=== PATIENT | female | born 2000 | race Caucasian/White ===

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

== ENCOUNTER 2020-04-03 20:09 | Emergency (ER) | payer BC, OTHER ==
[2020-04-03 20:17] VITALS: RESP 18; TEMP 99
[2020-04-03 21:24] LABS: ALT 25 U/L (4-34); AST 23 U/L (14-36); African American GFR (CKD) >90 (>60 ml/min/1.73 sqM); Alkaline Phosphatase 61 U/L (38-126); Anion Gap 8 mmol/L; Blood Urea Nitrogen 8 mg/dL (7-17); Calcium 9.3 mg/dL (8.4-10.2); Carbon Dioxide 24 mmol/L (22-30); Chloride 104 mmol/L (98-107); Glucose 96 mg/dL (74-99); Magnesium 1.9 mg/dL (1.6-2.3); Non-African American GFR(CKD) >90 (>60 ml/min/1.73 sqM); Potassium 3.7 mmol/L (3.5-5.1); Sodium 136 mmol/L (137-145); Total Bilirubin 0.3 mg/dL (0.2-1.3)
[2020-04-03 21:32] LABS: Basophils % (A) 0 %; Eosinophils # (A) 0.1 k/uL (0-0.7); Eosinophils % (A) 1 %; HCT 41.8 % (34.0-46.0); HGB 13.6 gm/dL (11.4-16.0); Lymphocytes # (A) 1.7 k/uL (1.0-4.8); Lymphocytes % (A) 21 %; MCH 29.5 pg (25.0-35.0); MCHC 32.6 g/dL (31.0-37.0); MCV 90.5 fL (80.0-100.0); Mean Platelet Volume 6.9; Monocytes # (A) 0.5 k/uL (0-1.0); Monocytes % (A) 7 %; Neutrophils # (A) 5.5 k/uL (1.3-7.7); Neutrophils % (A) 70 %; Platelet Count 272 k/uL (150-450); RBC 4.62 m/uL (3.80-5.40); RDW 12.4 % (11.5-15.5); WBC 7.9 k/uL (4.0-11.0)
[2020-04-03 21:45] LABS: D-Dimer 0.37 mg/L FEU (<0.60); INR 0.9 (<1.2); Partial Thromboplastin Time 22.7 sec (22.0-30.0); Prothrombin Time 9.5 sec (9.0-12.0)
--- NOTE | 2020-04-03 21:52 | XR ---
EXAMINATION TYPE: XR chest 2V DATE OF EXAM: 04/03/2020 COMPARISON: NONE HISTORY: Chest pain TECHNIQUE: 2 views FINDINGS: Heart and mediastinum are normal. Lungs are clear. Diaphragm is normal. Bony thorax appears normal. IMPRESSION: Normal chest. No change.
[2020-04-03] MEDS ORDERED: ACETAMINOPHEN TAB 325 MG TAB PO STA (21:57)
--- NOTE | 2020-04-03 22:40 | US ---
EXAMINATION TYPE: US venous doppler duplex LE BI DATE OF EXAM: 04/03/2020 10:28 PM COMPARISON: NONE CLINICAL HISTORY: CP with deep inspiration, . chest pain, SOB, patient 12 weeks SIDE PERFORMED: bilateral TECHNIQUE: The lower extremity deep venous system is examined utilizing real time linear array sonog kristie with graded compression, doppler sonography and color-flow sonography. VESSELS IMAGED: External Iliac Vein (EIV) Common Femoral Vein Deep Femoral Vein Greater Saphenous Vein * Femoral Vein Popliteal Vein Small Saphenous Vein * Proximal Calf Veins (* superficial vessels) *Technical limitations due to patient's body habitus Right Leg: no evidence of DVT as visualized Left Leg: no evidence of DVT as visualized IMPRESSION: No sign of deep vein thrombosis in both legs.
[2020-04-03 22:48] VITALS: BP 135/87; PULSE 70
--- NOTE | 2020-04-03 22:56 | ED ---
Chest Pain HPI - General Chief Complaint: Chest Pain Stated Complaint: Chest Pain- 12 wks preg Time Seen by Provider: 04/03/20 20:36 Source: patient, family Mode of arrival: wheelchair Limitations: no limitations - History of Present Illness Initial Comments: 20yo female currently 12 wks presents emergency department today for chief complaint of chest pain. She states it started 2 hours prior to starting work around 4 PM. She states that it is sharp in nature and sometimes increases with deep breath. She denies any leg swelling or calf pain. Patient denies any chest pressure jaw pain and arm pain she denies any significant shortness of breath. Patient states she does have a urinary eye symptoms fevers. She denies any abdominal pain or vaginal discharge patient is no additional complaints. Patient states she has had pain similar to this at other aspects of her body for the past 2-3 months. Patient has no additional concerns she appears well nontoxic on arrival in no acute distress. - Related Data Home Medications Medication Instructions Recorded Confirmed Escitalopram Oxalate [Lexapro] 10 mg PO DAILY 04/16/18 07/21/18 Previous Rx's Medication Instructions Recorded Cyclobenzaprine [Flexeril] 10 mg PO TID #20 tab 07/21/18 methylPREDNISolone [Medrol] 4 mg PO DIRECTED #21 tab.ds.pk 07/21/18 Cyclobenzaprine [Flexeril] 10 mg PO BID PRN 5 Days #10 tab 08/08/18 Ibuprofen 800 mg PO Q8H PRN 7 Days #21 tablet 08/08/18 Allergies Allergy/AdvReac Type Severity Reaction Status Date / Time No Known Allergies Allergy Verified 04/03/20 20:17 Review of Systems ROS Statement: Those systems with pertinent positive or pertinent negative responses have been documented in the HPI. ROS Other: All systems not noted in ROS Statement are negative. EKG Findings - EKG Comments: EKG Findings:: Ventricular rate 81 bpm, PA interval 140 ms QR administration a 2 ms, QT/QTC 378/439. This is normal sinus, NO ST elevation or depression. Past Medical History Past Medical History: No Reported History Additional Past Medical History / Comment(s): anxiety History of Any Multi-Drug Resistant Organisms: None Reported Past Surgical History: No Surgical Hx Reported Additional Past Surgical History / Comment(s): oral surgery Past Psychological History: Anxiety Smoking Status: Current every day smoker, Never smoker Past Alcohol Use History: Occasional Past Drug Use History: None Reported General Exam - General Exam Comments Initial Comments: General: The patient is awake and alert, in no distress, and does not appear acutely ill. Eye: Pupils are equal, round and reactive to light, extra-ocular movements are intact. No nystagmus. There is normal conjunctiva bilaterally. No signs of icterus. Ears, nose, mouth and throat: There are moist mucous membranes and no oral lesions. Neck: The neck is supple, there is no tenderness or JVD. Cardiovascular: There is a regular rate and rhythm. No murmur, rub or gallop is appreciated. Respiratory: Lungs are clear to auscultation, respirations are non-labored, breath sounds are equal. No wheezes, stridor, rales, or rhonchi. Gastrointestinal: Soft, non-distended, non-tender abdomen without masses or organomegaly noted. There is no rebound or guarding present. Musculoskeletal: Normal ROM, no tenderness. Strength 5/5. Sensation intact. Pulses equal bilaterally 2+. Neurological: A&O x 3. CN II-XII intact, There are no obvious motor or sensory deficits. Coordination appears grossly intact. Speech is normal. Skin: Skin is warm and dry and no rashes or lesions are noted. Negative Ewa ns. No calf swelling or pain. No lower extremity edema Psychiatric: Cooperative, appropriate mood & affect, normal judgment. Limitations: no limitations Course Vital Signs 04/03/20 04/03/20 20:12 22:47 Temperature 99 F Pulse Rate 79 70 Respiratory 18 18 Rate Blood Pressure 126/84 135/87 O2 Sat by Pulse 100 100 Oximetry Chest Pain MDM - MDM Ultrasound bilateral lower extremity is negative d-dimer negative troponin negative EKG no acute findings she is not tachycardic nor hypoxic. Patient was educated on CTA being gold standard for PE however thought to have low probability given laboratory studies/vs/ekg/us results. Patient states she would prefer to avoid the CTA/radiation and return if symptoms were worsening. Patient case discussed with Dr. Saucedo who is agreeable to care plan and discharge. Disposition Clinical Impression: Chest discomfort Disposition: HOME SELF-CARE Condition: Good Instructions (If sedation given, give patient instructions): Chest Pain (ED) Additional Instructions: Please use medication as discussed. Please follow-up with family doctor in the next 2 days. Please return to emergency room if the symptoms increase or worsen or for any other concerns. Is patient prescribed a controlled substance at d/c from ED?: No Referrals: None,Stated [Primary Care Provider] - 1-2 days Time of Disposition: 22:56
== END 2020-04-03 23:08 | disposition home or self-care (01) ==
LOC: EC 20:09
DX: O99.891 Other specified diseases and conditions complicating pregnancy (principal); R07.89 Other chest pain; O99.341 Other mental disorders complicating pregnancy, first trimester; F41.9 Anxiety disorder, unspecified; O99.331 Smoking (tobacco) complicating pregnancy, first trimester; F17.200 Nicotine dependence, unspecified, uncomplicated; Z79.899 Other long term (current) drug therapy; Z3A.12 12 weeks gestation of pregnancy
CPT/HCPCS: 36415; 71046; 80053; 83735; 84484; 85025; 85379; 85610; 85730; 93005; 93970; 99285

== ENCOUNTER 2020-06-07 17:07 | Outpatient (CLI) | payer BC ==
[2020-06-07 18:12] VITALS: BP 119/77; PULSE 94; RESP 16; TEMP 97.4
--- NOTE | 2020-06-20 05:15 | P.MSEPDOC ---
Presenting Problems - Arrival Data Date of Arrival on Unit: 06/07/20 Time of Arrival on Unit: 17:07 Mode of Transport: Wheelchair - Complaint OB-Reason for Admission/Chief Complaint: Other Comment: Pt presents to triage with reports of abdominal pain, intermitnent nausea and vomiting. Medical History - Information : 1 Para: 0 Term: 0 : 0 Abortions: Spontaneous or Elective: 0 Number of Living Children: 0 - Gestational Age Gestational Age by BAR (wks/days): 21 Weeks and 2 Days Review of Systems - Review of Systems Constitutional: No problems Breast: No problems ENT: No problems Cardiovascular: No problems Respiratory: No problems Gastrointestinal: Diarrhea, Pain Genitourinary: No problems Musculoskeletal: No problems Neurological: No problems Skin: No problems Vital Signs - Temperature Temperature: 97.4 F - Pulse Pulse Oximetery Pulse Rate: 94 Pulse Assessment Method: Automatic Cuff - Respirations Respiratory Rate: 16 Oxygen Delivery Method: Room Air - Blood Pressure Right Arm Blood Pressure: 119/77 Blood Pressure Mean: 91 Blood Pressure Source: Automatic Cuff Medical Screen Scoring (Pre) - Cervical Exam Dilation: Exam Deferred Effacement: Exam Deferred Membranes: Intact - Uterine Contractions Frequency: N/A Duration: N/A Intensity: N/A - Maternal Vital Signs Maternal Temperature: N/A Maternal Blood Pressure: N/A Signs of Preeclampsia: N/A Maternal Respirations: N/A - Maternal Trauma Maternal Trauma: N/A - Assessment - Baby A Baseline FHR: 150 NST: Reactive - Total Score - Baby A Total Score - Baby A: 0 - Total Score - Baby B Total Score - Baby B: 0 - Total Score - Baby C Total Score - Baby C: 0 - Level of Risk - Baby A Level of Risk - Baby A: Low (0-5) - Level of Risk - Baby B Level of Risk - Baby B: Low (0-5) - Level of Risk - Baby C Level of Risk - Baby C: Low (0-5) Physician Notification (Pre) - Physician Notified Physician Notified Date: 06/07/20 Physician Notified Time: 17:40 New Order Received: Yes (milk of mag, diet, discharge) Disposition - Disposition OB Disposition: Discharge to home Discharge Date: 06/07/20 Discharge Time: 17:40 I agree with the RN Medical Screening Exam: Yes Risk & Benefit of care provided described in d/c instruction: Yes Diagnosis: VOMITING OF , UNSPECIFIED
== END 2020-06-07 17:50 | disposition home or self-care (01) ==
LOC: FBPOP 17:07
PROVIDERS: ATTEND Obstetrics & Gynecology
DX: O21.9 Vomiting of pregnancy, unspecified (principal); Z3A.21 21 weeks gestation of pregnancy
CPT/HCPCS: 99213

== ENCOUNTER → 2020-06-14 | Outpatient (CLI) | payer BC ==
--- NOTE | 2020-06-14 14:17 | US ---
EXAMINATION TYPE: US abdomen complete DATE OF EXAM: 06/14/2020 COMPARISON: NONE CLINICAL HISTORY: R10.11 RUQ ABD PAIN. On/off RUQ pain and N/V x couple weeks, worse after eating, leigha connors is 23 week . EXAM MEASUREMENTS: Liver Length: 17.6 cm Gallbladder Wall: 0.2 cm CBD: 0.3 cm Spleen: 14.3 cm Right Kidney: 11.5 x 5.9 x 5.2 cm Left Kidney: 10.4 x 5.3 x 6.7 cm Difficult and limited study due to patient body habitus Pancreas: wnl Liver: wnl Gallbladder: cholelithiasis Evidence for sonographic Arrington's sign: no CBD: wnl Spleen: wnl Right Kidney: wnl Left Kidney: wnl Upper IVC: wnl Abd Aorta: wnl The liver is homogenous. The intrahepatic portion of the IVC and proximal abdominal aorta are within normal limits. Common bile duct is unremarkable. The visualized portions of the pancreas are homog enous. The spleen is unremarkable. Kidneys are symmetric and free of hydronephrosis. No renal lesi ons are seen. IMPRESSION: There is evidence of cholelithiasis.
== END | disposition home or self-care (01) ==
LOC: RADUSWWP 13:36
PROVIDERS: ATTEND Obstetrics & Gynecology
DX: K80.20 Calculus of gallbladder without cholecystitis without obstruction (principal)
CPT/HCPCS: 76700

== ENCOUNTER 2020-08-06 01:56 | Outpatient (CLI) | payer BC ==
[2020-08-06] MEDS ORDERED: LACTATED RINGERS 1,000 ML IV SCH (02:30)
[2020-08-06 03:06] LABS: Basophils # (A) 0.1 k/uL (0-0.2); Basophils % (A) 0 %; Eosinophils # (A) 0.1 k/uL (0-0.7); Eosinophils % (A) 1 %; HCT 38.9 % (34.0-46.0); Lymphocytes # (A) 1.7 k/uL (1.0-4.8); Lymphocytes % (A) 15 %; MCH 31.1 pg (25.0-35.0); MCHC 33.5 g/dL (31.0-37.0); MCV 92.8 fL (80.0-100.0); Mean Platelet Volume 7.2; Monocytes # (A) 0.7 k/uL (0-1.0); Monocytes % (A) 6 %; Neutrophils # (A) 8.8 k/uL (1.3-7.7); Neutrophils % (A) 77 %; Platelet Count 234 k/uL (150-450); RBC 4.19 m/uL (3.80-5.40); RDW 12.8 % (11.5-15.5); WBC 11.4 k/uL (4.0-11.0)
[2020-08-06 03:22] LABS: Amylase 42 U/L (30-110); Lipase 66 U/L (23-300)
[2020-08-06 03:29] VITALS: BP 132/71; PULSE 85; RESP 18; TEMP 97.4
[2020-08-06 03:46] LABS: Appearance,Urine Clear (Clear); Bilirubin,Urine Negative (Negative); Blood,Urine Negative (Negative); Color,Urine Yellow; Glucose,Urine (UA) Negative (Negative); Ketones,Urine 1+ (Negative); Leukocyte Esterase,Urine Negative (Negative); Nitrite,Urine Negative (Negative); PH, Urine 5.5 (5.0-8.0); Protein,Urine Negative (Negative); Specific Gravity,Urine 1.013 (1.001-1.035); Urobilinogen,Urine <2.0 mg/dL (<2.0)
[2020-08-06] MEDS ORDERED: ONDANSETRON 4 MG/2 ML VIAL IVP ONE (04:48)
[2020-08-06 05:13] LABS: Chloride 104 mmol/L (98-107)
[2020-08-06 05:15] LABS: African American GFR (CKD) >90 (>60 ml/min/1.73 sqM); Anion Gap 5 mmol/L; Blood Urea Nitrogen 4 mg/dL (7-17); Carbon Dioxide 25 mmol/L (22-30); Glucose 101 mg/dL (74-99); Non-African American GFR(CKD) >90 (>60 ml/min/1.73 sqM); Sodium 134 mmol/L (137-145)
[2020-08-06 05:48] LABS: ALT 21 U/L (4-34); AST 45 U/L (14-36)
--- NOTE | 2020-08-06 07:01 | P.MSEPDOC ---
Presenting Problems - Arrival Data Date of Arrival on Unit: 08/06/20 Time of Arrival on Unit: 01:55 Mode of Transport: Wheelchair - Complaint OB-Reason for Admission/Chief Complaint: Pain Comment: patient presents to triage with severe right sided abdominal pain. patient. states that she has had gallstone issues since May 2020 and was told by her surgeon. Dr. Triplett to come to the hospital with any flare ups. patient denies eating anything. that could have triggered her flare up. patient states pain has been going on for. atleast 2 hours. Medical History - Information : 1 Para: 0 Term: 0 : 0 Abortions: Spontaneous or Elective: 0 Number of Living Children: 0 - Gestational Age Gestational Age by BAR (wks/days): 30 Weeks and 3 Days Review of Systems - Review of Systems Constitutional: No problems Breast: No problems ENT: No problems Cardiovascular: No problems Respiratory: No problems Gastrointestinal: No problems Genitourinary: No problems Musculoskeletal: No problems Neurological: No problems Skin: No problems Vital Signs - Temperature Temperature: 97.4 F Temperature Source: Temporal Artery Scan - Pulse Right Brachial Pulse Rate: 85 Pulse Assessment Method: Automatic Cuff - Respirations Respiratory Rate: 18 Oxygen Delivery Method: Room Air O2 Sat by Pulse Oximetry: 99 - Blood Pressure Right Arm Blood Pressure: 132/71 Blood Pressure Mean: 91 Blood Pressure Source: Automatic Cuff Medical Screen Scoring (Pre) - Cervical Exam Dilation: Exam Deferred Effacement: Exam Deferred Membranes: Intact - Uterine Contractions Frequency: N/A Duration: N/A Intensity: N/A - Maternal Vital Signs Maternal Temperature: N/A Maternal Blood Pressure: N/A Signs of Preeclampsia: N/A Maternal Respirations: N/A - Maternal Trauma Maternal Trauma: N/A - Assessment - Baby A Baseline FHR: 135 Heart Rate - NICHD Category: Category I (Normal) = 0 NST: Reactive Position: N/A Station: N/A - Total Score - Baby A Total Score - Baby A: 0 - Total Score - Baby B Total Score - Baby B: 0 - Total Score - Baby C Total Score - Baby C: 0 - Level of Risk - Baby A Level of Risk - Baby A: Low (0-5) - Level of Risk - Baby B Level of Risk - Baby B: Low (0-5) - Level of Risk - Baby C Level of Risk - Baby C: Low (0-5) Physician Notification (Pre) - Physician Notified Physician Notified Date: 08/06/20 Physician Notified Time: : New Order Received: Yes - Notification Comment Comment: reported on and maternal status. reports of severe right abdominal pain and history of gallstones. Cbc, amlayse, lipase, 1L of lactated ringers, and u/a ordered and to call back with results. Disposition - Disposition OB Disposition: Triage Discharge Date: 08/06/20 Discharge Time: 06:06 I agree with the RN Medical Screening Exam: Yes Case reviewed; plan agreed upon as documented in EMR&OBIX.: Yes Diagnosis: OTHER CHOLELITHIASIS WITHOUT OBSTRUCTION (This patient is a 20-year-old female estimated gestational age approximately 30 weeks with known cholelithiasis who has had intermittent right upper quadrant pain who presented to triage with complaints of increasing pain. Patient's evaluation shows a normal CBC and pancreatic enzymes. Her AST was mildly elevated. Patient did have 1+ ketones. I gave the patient some IV fluids and anti-medic. Did discuss her laboratory with her and explained to her that at this gestational age is unlikely that they will do a cholecystectomy unless there is emergent indications. I reinforced evening a bland diet and increasing oral hydration. Patient is to contact the office this morning to see Dr. Goldberg next week for an OB visit and repeat liver function tests. I gave her strict instructions return to the hospital she is unable to keep anything down or if she feels the pain is becoming intractable. This time there was no evidence of maternal or compromise.)
== END 2020-08-06 06:05 | disposition home or self-care (01) ==
LOC: FBPOP 01:56
PROVIDERS: ATTEND Obstetrics & Gynecology
DX: K80.20 Calculus of gallbladder without cholecystitis without obstruction (principal); Z33.1 Pregnant state, incidental; Z3A.30 30 weeks gestation of pregnancy
CPT/HCPCS: 59025; 96367; 96375; 80048; 82150; 83690; 84450; 84460; 85025; 81003; J2405

== ENCOUNTER 2020-08-18 16:37 | Emergency (ER) | payer BC ==
[2020-08-18 16:44] VITALS: TEMP 98.2
[2020-08-18] MEDS ORDERED: SODIUM CHLORIDE 0.9% 500 ML 500 ML IV STA (16:54)
--- NOTE | 2020-08-18 16:58 | ED ---
General Adult HPI - General Chief complaint: Abdominal Pain Stated complaint: Gallbladder issues - 31 wks preg Time Seen by Provider: 08/18/20 16:40 Source: patient, RN notes reviewed, old records reviewed Mode of arrival: ambulatory Limitations: no limitations - History of Present Illness Initial comments: This is a 20-year-old female presents to the emergency department 31 weeks . Patient states she has a history of gallstones. Patient states yesterday she had quite a bit of right upper quadrant abdominal pain and it eventually went away. Patient states today she had another 2 hours this morning and the pain is since gone away and now she is pain-free. Patient states she comes emergency Department because her GIVING OFFICER told her to come in and be evaluated. Patient denies any fever chills. Patient denies any nausea vomiting per patient any diarrhea. Patient denies any lower abdominal pain. Patient denies any vaginal bleeding. Patient denies any chest pain difficulty breathing or shortness of breath. - Related Data Home Medications Medication Instructions Recorded Confirmed Pnv No.95/Ferrous Fum/Folic AC 1 tab PO DAILY 06/07/20 08/18/20 [ Multivitamin Tablet] Acetaminophen [Tylenol] 325 mg PO Q4H PRN 08/18/20 08/18/20 Allergies Allergy/AdvReac Type Severity Reaction Status Date / Time No Known Allergies Allergy Verified 08/18/20 17:42 Review of Systems ROS Statement: Those systems with pertinent positive or pertinent negative responses have been documented in the HPI. ROS Other: All systems not noted in ROS Statement are negative. Past Medical History Past Medical History: No Reported History Additional Past Medical History / Comment(s): anxiety History of Any Multi-Drug Resistant Organisms: None Reported Past Surgical History: No Surgical Hx Reported Additional Past Surgical History / Comment(s): oral surgery Past Psychological History: Anxiety Smoking Status: Never smoker Past Alcohol Use History: None Reported Past Drug Use History: None Reported General Exam - General Exam Comments Initial Comments: GENERAL: Patient is well-developed and well-nourished. Patient is nontoxic and well- hydrated and is in no acute distress. ENT: Neck is soft and supple. No significant lymphadenopathy is noted. Oropharynx is clear. Moist mucous membranes. Neck has full range of motion without eliciting any pain. EYES: The sclera were anicteric and conjunctiva were pink and moist. Extraocular movements were intact and pupils were equal round and reactive to light. Eyelids were unremarkable. PULMONARY: Unlabored respirations. Good breath sounds bilaterally. No audible rales rhonchi or wheezing was noted. CARDIOVASCULAR: There is a regular rate and rhythm without any murmurs gallops or rubs. ABDOMEN: abdomen. Soft and nontender with normal bowel sounds. No palpable organomegaly was noted. There is no palpable pulsatile mass. SKIN: Skin is clear with no lesions or rashes and otherwise unremarkable. NEUROLOGIC: Patient is alert and oriented x3. Cranial nerves II through XII are grossly intact. Motor and sensory are also intact. Normal speech, volume and content. Symmetrical smile. MUSCULOSKELETAL: Normal extremities with adequate strength and full range of motion. No lower extremity swelling or edema. No calf tenderness. LYMPHATICS: No significant lymphadenopathy is noted PSYCHIATRIC: Normal psychiatric evaluation. Limitations: no limitations Course Vital Signs 08/18/20 08/18/20 16:39 19:24 Temperature 98.2 F Pulse Rate 91 80 Respiratory 18 17 Rate Blood Pressure 126/73 140/80 O2 Sat by Pulse 99 100 Oximetry Medical Decision Making - Medical Decision Making Patient received IV fluids in the emergency department. patient had a gallbladder ultrasound showed no acute abnormality. I spoke with Dr. López he wanted me to touch base with Dr. Triplett. I spoke with Dr. Triplett he agreed to have the patient follow-up in his office at 1:00 tomorrow. Patient had been nonstress test in the emergency department. - Lab Data Result diagrams: 08/18/20 17:31 08/18/20 17:31 Lab Results 08/18/20 08/18/20 08/18/20 Range/Units 17:31 17:31 17:31 WBC 9.1 (4.0-11.0) k/uL RBC 4.32 (3.80-5.40) m/uL Hgb 13.5 (11.4-16.0) gm/dL Hct 39.1 (34.0-46.0) % MCV 90.5 (80.0-100.0) fL MCH 31.4 (25.0-35.0) pg MCHC 34.7 (31.0-37.0) g/dL RDW 12.5 (11.5-15.5) % Plt Count 267 (150-450) k/uL MPV 6.9 Neutrophils % 75 % Lymphocytes % 16 % Monocytes % 7 % Eosinophils % 1 % Basophils % 0 % Neutrophils # 6.8 (1.3-7.7) k/uL Lymphocytes # 1.5 (1.0-4.8) k/uL Monocytes # 0.6 (0-1.0) k/uL Eosinophils # 0.1 (0-0.7) k/uL Basophils # 0.0 (0-0.2) k/uL Sodium 137 (137-145) mmol/L Potassium 4.1 (3.5-5.1) mmol/L Chloride 105 (98-107) mmol/L Carbon Dioxide 22 (22-30) mmol/L Anion Gap 10 mmol/L BUN 6 L (7-17) mg/dL Creatinine 0.46 L (0.52-1.04) mg/dL Est GFR (CKD-EPI)AfAm >90 (>60 ml/min/1.73 sqM) Est GFR (CKD-EPI)NonAf >90 (>60 ml/min/1.73 sqM) Glucose 84 (74-99) mg/dL Calcium 9.6 (8.4-10.2) mg/dL Total Bilirubin 2.3 H (0.2-1.3) mg/dL AST 114 H (14-36) U/L ALT 65 H (4-34) U/L Alkaline Phosphatase 140 H (38-126) U/L Total Protein 7.3 (6.3-8.2) g/dL Albumin 4.0 (3.5-5.0) g/dL Amylase 38 (30-110) U/L Lipase 95 (23-300) U/L Urine Color Dark Yellow Urine Appearance Cloudy H (Clear) Urine pH 6.5 (5.0-8.0) Ur Specific [place] 1.013 (1.001-1.035) Urine Protein Trace H (Negative) Urine Glucose (UA) Negative (Negative) Urine Ketones Negative (Negative) Urine Blood Negative (Negative) Urine Nitrite Negative (Negative) Urine Bilirubin 1+ H (Negative) Urine Urobilinogen <2.0 (<2.0) mg/dL Ur Leukocyte Esterase Trace H (Negative) Urine RBC 2 (0-5) /hpf Urine WBC 14 H (0-5) /hpf Ur Squamous Epith Cells 8 H (0-4) /hpf Urine Bacteria Moderate H (None) /hpf Hyaline Casts 1 (0-2) /lpf Urine Mucus Occasional H (None) /hpf Disposition Clinical Impression: Right upper quadrant abdominal pain, Cholelithiasis Disposition: HOME SELF-CARE Condition: Good Instructions (If sedation given, give patient instructions): Abdominal Pain (ED) Is patient prescribed a controlled substance at d/c from ED?: No Referrals: Darron Triplett MD [STAFF PHYSICIAN] - 08/19/20 1:00 pm Time of Disposition: 20:08
[2020-08-18 17:39] LABS: Basophils % (A) 0 %; Eosinophils # (A) 0.1 k/uL (0-0.7); Eosinophils % (A) 1 %; HCT 39.1 % (34.0-46.0); HGB 13.5 gm/dL (11.4-16.0); Lymphocytes # (A) 1.5 k/uL (1.0-4.8); Lymphocytes % (A) 16 %; MCH 31.4 pg (25.0-35.0); MCHC 34.7 g/dL (31.0-37.0); MCV 90.5 fL (80.0-100.0); Mean Platelet Volume 6.9; Monocytes # (A) 0.6 k/uL (0-1.0); Monocytes % (A) 7 %; Neutrophils # (A) 6.8 k/uL (1.3-7.7); Neutrophils % (A) 75 %; Platelet Count 267 k/uL (150-450); RBC 4.32 m/uL (3.80-5.40); RDW 12.5 % (11.5-15.5); WBC 9.1 k/uL (4.0-11.0)
[2020-08-18 17:42] LABS: Appearance,Urine Cloudy (Clear); Bacteria,Urine Moderate /hpf; Bilirubin,Urine 1+ (Negative); Blood,Urine Negative (Negative); Color,Urine Dark Yellow; Glucose,Urine (UA) Negative (Negative); Hyaline Casts,Urine 1 /lpf (0-2); Ketones,Urine Negative (Negative); Leukocyte Esterase,Urine Trace (Negative); Mucus,Urine Occasional /hpf; Nitrite,Urine Negative (Negative); PH, Urine 6.5 (5.0-8.0); Protein,Urine Trace (Negative); RBC,Urine 2 /hpf (0-5); Specific Gravity,Urine 1.013 (1.001-1.035); Squamous Epithelial Cell,Urine 8 /hpf (0-4); Urobilinogen,Urine <2.0 mg/dL (<2.0); WBC,Urine 14 /hpf (0-5)
[2020-08-18 17:49] LABS: ALT 65 U/L (4-34); AST 114 U/L (14-36); African American GFR (CKD) >90 (>60 ml/min/1.73 sqM); Alkaline Phosphatase 140 U/L (38-126); Amylase 38 U/L (30-110); Anion Gap 10 mmol/L; Blood Urea Nitrogen 6 mg/dL (7-17); Calcium 9.6 mg/dL (8.4-10.2); Carbon Dioxide 22 mmol/L (22-30); Chloride 105 mmol/L (98-107); Glucose 84 mg/dL (74-99); Lipase 95 U/L (23-300); Non-African American GFR(CKD) >90 (>60 ml/min/1.73 sqM); Potassium 4.1 mmol/L (3.5-5.1); Sodium 137 mmol/L (137-145); Total Bilirubin 2.3 mg/dL (0.2-1.3); Total Protein 7.3 g/dL (6.3-8.2)
--- NOTE | 2020-08-18 18:56 | US ---
EXAMINATION TYPE: US gallbladder DATE OF EXAM: 08/18/2020 COMPARISON: US CLINICAL HISTORY: Right upper quadrant abdominal pain. RUQ pain x 1 day. Hx cholelithiasis. Patient i s 31 weeks . EXAM MEASUREMENTS: Liver Length: 15.6 cm Gallbladder Wall: 0.27 cm CBD: 0.26 cm Right Kidney: 12.1 x 6.8 x 5.2 cm Limited due to gas and patient body habitus. Pancreas: Not well seen. Liver: Appears to have a slightly increased echogenicity. Gallbladder: Multiple hyperechoic foci with posterior shadowing seen within. Evidence for sonographic Arrington's sign: Patient feels pain while scanning over the RUQ. CBD: Portions seen appear wnl. Right Kidney: Measures upper limits of normal versus minimally enlarged. IMPRESSION: Cholelithiasis without sonographic evidence for acute cholecystitis. However reported pos itive sonographic Arrington's sign.
[2020-08-18 19:27] VITALS: BP 140/80; PULSE 80; RESP 17
[2020-08-18] MEDS ORDERED: SODIUM CHLORIDE 0.9% 1,000 ML IV ONE (19:59)
--- NOTE | 2020-08-19 06:36 | P.PN ---
Progress Note - Text Progress Note Date: 08/19/20 I was contacted last evening by the emergency room physician in regards to this patient. The patient is a 20-year-old 1 para 0 female estimated gestational age he 2 weeks who is a patient of Dr. Hightower's and has been followed by him for right upper quadrant pain and known cholelithiasis. Patient was in the hospital on August 06 having some right upper quadrant pain and at that time did have a mild liver function elevation. Patient was also seen back in May for a similar finding. Patient was seen by Dr. Hightower in the office on the and at that time apparently was supposed to get repeat liver test but appears she did not. Patient contacted the office yesterday and was told by Dr. Hightower to go to the emergency department for right upper quadrant pain. Dr. Camp evaluated the patient and felt that she was not having any significant pain, however repeat lab work did show significant elevation of her bilirubin and also elevation of her AST and ALT. Dr. Raymond was contacted and she was instructed to follow up with him today at 1:00. Nonstress test was done which was reassuring and there was no evidence of compromise. Blood pressures were normal there is no evidence of preeclampsia. It is evident that this patient's pain is related to her cholelithiasis and not related.
== END 2020-08-18 21:28 | disposition home or self-care (01) ==
LOC: EC 16:37
DX: O26.613 Liver and biliary tract disorders in pregnancy, third trimester (principal); K80.20 Calculus of gallbladder without cholecystitis without obstruction; Z3A.31 31 weeks gestation of pregnancy
CPT/HCPCS: 36415; 76705; 80053; 81001; 82150; 83690; 85025; 87086; 96360; 99284

== ENCOUNTER 2020-08-25 09:23 | Outpatient (CLI) | payer BC ==
[2020-08-25 10:03] VITALS: BP 118/67; PULSE 82; RESP 18; TEMP 97.4
[2020-08-25 11:02] LABS: Basophils % (A) 0 %; Eosinophils # (A) 0.1 k/uL (0-0.7); Eosinophils % (A) 1 %; HCT 37.6 % (34.0-46.0); HGB 12.5 gm/dL (11.4-16.0); Lymphocytes # (A) 1.2 k/uL (1.0-4.8); Lymphocytes % (A) 14 %; MCH 30.4 pg (25.0-35.0); MCHC 33.2 g/dL (31.0-37.0); MCV 91.6 fL (80.0-100.0); Mean Platelet Volume 7.1; Monocytes # (A) 0.5 k/uL (0-1.0); Monocytes % (A) 6 %; Neutrophils # (A) 6.7 k/uL (1.3-7.7); Neutrophils % (A) 78 %; Platelet Count 258 k/uL (150-450); WBC 8.6 k/uL (4.0-11.0)
[2020-08-25 11:06] LABS: Albumin 3.7 g/dL (3.5-5.0); Bilirubin, Delta 0.6 mg/dL (0.0-0.2); Bilirubin,Unconjugated 0.6 mg/dL (0.0-1.1); Total Bilirubin 1.2 mg/dL (0.2-1.3); Total Protein 6.7 g/dL (6.3-8.2)
--- NOTE | 2020-08-25 17:34 | P.MSEPDOC ---
Presenting Problems - Arrival Data Date of Arrival on Unit: 08/25/20 Time of Arrival on Unit: 09:45 Mode of Transport: Wheelchair - Complaint OB-Reason for Admission/Chief Complaint: Pain Comment: right flank pain Medical History - Information : 1 Para: 0 Term: 0 : 0 Abortions: Spontaneous or Elective: 0 Number of Living Children: 0 - Gestational Age Gestational Age by BAR (wks/days): 32 Weeks and 4 Days Review of Systems - Review of Systems Constitutional: No problems Breast: No problems ENT: No problems Cardiovascular: No problems Respiratory: No problems Gastrointestinal: No problems Genitourinary: No problems Musculoskeletal: No problems Neurological: No problems Skin: No problems Vital Signs - Temperature Temperature: 97.4 F Temperature Source: Temporal Artery Scan - Pulse Right Brachial Pulse Rate: 82 Pulse Assessment Method: Automatic Cuff - Respirations Respiratory Rate: 18 Oxygen Delivery Method: Room Air O2 Sat by Pulse Oximetry: 97 - Blood Pressure Right Arm Blood Pressure: 118/67 Blood Pressure Mean: 84 Blood Pressure Source: Automatic Cuff Medical Screen Scoring (Pre) - Cervical Exam Dilation: Exam Deferred Effacement: Exam Deferred Membranes: Intact - Uterine Contractions Frequency: N/A Duration: N/A Intensity: N/A - Maternal Vital Signs Maternal Temperature: N/A Maternal Blood Pressure: N/A Signs of Preeclampsia: Epigastric Pain = 1 Maternal Respirations: N/A - Maternal Trauma Maternal Trauma: N/A - Assessment - Baby A Baseline FHR: 135 Position: N/A Station: N/A - Total Score - Baby A Total Score - Baby A: 1 - Total Score - Baby B Total Score - Baby B: 1 - Total Score - Baby C Total Score - Baby C: 1 - Level of Risk - Baby A Level of Risk - Baby A: Low (0-5) - Level of Risk - Baby B Level of Risk - Baby B: Low (0-5) - Level of Risk - Baby C Level of Risk - Baby C: Low (0-5) Physician Notification (Pre) - Physician Notified Physician Notified Date: 08/25/20 Physician Notified Time: 09:55 New Order Received: Yes - Notification Comment Comment: order received for labs to be drawn Disposition - Disposition OB Disposition: Discharge to home Discharge Date: 08/25/20 Discharge Time: 11:25 I agree with the RN Medical Screening Exam: Yes Case reviewed; plan agreed upon as documented in EMR&OBIX.: Yes Diagnosis: OTHER CHOLELITHIASIS WITHOUT OBSTRUCTION (Patient presented to triage with complaints of recurrent right upper quadrant pain. Patient has a known diagnosis of cholelithiasis. Patient has been following with Dr. Henson as an outpatient. Patient is also had known elevated liver enzymes. I repeated the patient's blood work today and there is no evidence of elevated white count. Patient is afebrile and not having any nausea and vomiting. At this point there is no evidence of maternal or compromise. Patient was felt to be stable for discharge home follow up with Dr. Hightower tomorrow.)
== END 2020-08-25 11:23 | disposition home or self-care (01) ==
LOC: FBPOP 09:23
PROVIDERS: ATTEND Obstetrics & Gynecology
DX: O99.613 Diseases of the digestive system complicating pregnancy, third trimester (principal); K80.80 Other cholelithiasis without obstruction; Z3A.32 32 weeks gestation of pregnancy
CPT/HCPCS: 59025; 80076; 82150; 83690; 85025; 99213

== ENCOUNTER 2020-09-03 16:08 | Outpatient (CLI) | payer BC ==
[2020-09-03 18:11] VITALS: BP 124/66; PULSE 86; RESP 16; TEMP 98.2
--- NOTE | 2020-09-09 16:40 | P.MSEPDOC ---
Presenting Problems - Arrival Data Date of Arrival on Unit: 09/03/20 Time of Arrival on Unit: 16:08 Mode of Transport: Ambulatory - Complaint OB-Reason for Admission/Chief Complaint: Other Comment: pt arrived c/o mild cramping since 2 pm pt not sure whether shes in labor or not. pt denies any leaking of fluid. Medical History - Information : 1 Para: 0 Term: 0 : 0 Abortions: Spontaneous or Elective: 0 Number of Living Children: 0 - Gestational Age Gestational Age by BAR (wks/days): 33 Weeks and 6 Days Review of Systems - Review of Systems Constitutional: No problems Breast: No problems ENT: No problems Cardiovascular: No problems Respiratory: No problems Gastrointestinal: No problems Genitourinary: No problems Musculoskeletal: No problems Neurological: No problems Skin: No problems Vital Signs - Temperature Temperature: 98.2 F Temperature Source: Oral - Pulse Right Brachial Pulse Rate: 86 Pulse Assessment Method: Automatic Cuff - Respirations Respiratory Rate: 16 Oxygen Delivery Method: Room Air O2 Sat by Pulse Oximetry: 98 - Blood Pressure Right Arm Blood Pressure: 124/66 Blood Pressure Mean: 85 Blood Pressure Source: Automatic Cuff Medical Screen Scoring (Pre) - Cervical Exam Dilation: 0 cm = 0 Membranes: Intact - Uterine Contractions Frequency: > 5 minutes apart = 1, < 36 weeks = 6 Duration: N/A Intensity: N/A - Maternal Vital Signs Maternal Temperature: N/A Maternal Blood Pressure: N/A Signs of Preeclampsia: N/A Maternal Respirations: N/A - Maternal Trauma Maternal Trauma: N/A - Assessment - Baby A Baseline FHR: 130 Heart Rate - NICHD Category: Category I (Normal) = 0 NST: Reactive Position: N/A Station: N/A - Total Score - Baby A Total Score - Baby A: 7 - Total Score - Baby B Total Score - Baby B: 7 - Total Score - Baby C Total Score - Baby C: 7 - Level of Risk - Baby A Level of Risk - Baby A: Medium (6-9) - Level of Risk - Baby B Level of Risk - Baby B: Medium (6-9) - Level of Risk - Baby C Level of Risk - Baby C: Medium (6-9) Physician Notification (Pre) - Physician Notified Physician Notified Date: 09/03/20 Physician Notified Time: 16:15 New Order Received: Yes - Notification Comment Comment: dr yanez in department came in and seen pt and ordered a fironectin test and observe and call with report. reactive NST. V/S wnl. fibronectin obtained and sent to lab and negative. cervix closed thick with no discharge noted. pt discharged to home with instructions Disposition - Disposition OB Disposition: Discharge to home Discharge Date: 09/03/20 Discharge Time: 17:50 I agree with the RN Medical Screening Exam: Yes Case reviewed; plan agreed upon as documented in EMR&OBIX.: Yes Diagnosis: FALSE LABOR BEFORE 37 COMPLETED WEEKS OF GEST, THIRD TRI
== END 2020-09-03 17:50 | disposition home or self-care (01) ==
LOC: FBPOP 16:08
PROVIDERS: ATTEND Obstetrics & Gynecology
DX: O47.03 False labor before 37 completed weeks of gestation, third trimester (principal); Z3A.33 33 weeks gestation of pregnancy
CPT/HCPCS: 59025; 82731; 99213

== ENCOUNTER 2020-09-19 10:54 | Outpatient (CLI) | payer BC ==
[2020-09-19 12:51] VITALS: BP 129/76; PULSE 100; RESP 18; TEMP 97.1
--- NOTE | 2020-09-20 02:41 | P.MSEPDOC ---
Presenting Problems - Arrival Data Date of Arrival on Unit: 09/19/20 Time of Arrival on Unit: 10:54 Mode of Transport: Ambulatory - Complaint OB-Reason for Admission/Chief Complaint: Possible Onset of Labor Comment: pt c/o irregular contractions every 5-10mins apart since last night at 2200. Denies leaking or bleeding of fluid at this time. Medical History - Information : 1 Para: 0 Term: 0 : 0 Abortions: Spontaneous or Elective: 0 Number of Living Children: 0 - Gestational Age Gestational Age by BAR (wks/days): 36 Weeks and 1 Days Review of Systems - Review of Systems Constitutional: No problems Breast: No problems ENT: No problems Cardiovascular: No problems Respiratory: No problems Gastrointestinal: No problems Genitourinary: No problems Musculoskeletal: No problems Neurological: No problems Skin: No problems Vital Signs - Temperature Temperature: 97.1 F Temperature Source: Temporal Artery Scan - Pulse Right Pulse Rate: 100 Pulse Assessment Method: Pulse Oximetry - Respirations Respiratory Rate: 18 Oxygen Delivery Method: Room Air - Blood Pressure Right Arm Blood Pressure: 129/76 Blood Pressure Mean: 93 Blood Pressure Source: Automatic Cuff Medical Screen Scoring (Pre) - Cervical Exam Dilation: 0 cm = 0 Effacement: Exam Deferred Membranes: Intact - Uterine Contractions Frequency: > 5 minutes apart = 1, < 36 weeks = 6 Duration: N/A Intensity: N/A - Maternal Vital Signs Maternal Temperature: N/A Maternal Blood Pressure: N/A Signs of Preeclampsia: N/A Maternal Respirations: N/A - Maternal Trauma Maternal Trauma: N/A - Assessment - Baby A Baseline FHR: 130 Heart Rate - NICHD Category: Category I (Normal) = 0 NST: Reactive Position: N/A Station: N/A - Total Score - Baby A Total Score - Baby A: 7 - Total Score - Baby B Total Score - Baby B: 7 - Total Score - Baby C Total Score - Baby C: 7 - Level of Risk - Baby A Level of Risk - Baby A: Medium (6-9) - Level of Risk - Baby B Level of Risk - Baby B: Medium (6-9) - Level of Risk - Baby C Level of Risk - Baby C: Medium (6-9) Physician Notification (Pre) - Physician Notified Physician Notified Date: 09/19/20 Physician Notified Time: 12:00 New Order Received: Yes (reactive NST and no cervical change at 1 hour and pt to be d/c home.) - Notification Comment Comment: reactive NST and no cervical change at 1 hour and pt to be d/c home with follow up instructions. Medical Screen Scoring (Post) - Cervical Exam Dilation: 0 cm = 0 Effacement: Exam Deferred Membranes: Intact - Uterine Contractions Frequency: < 36 weeks = 6 Duration: N/A Intensity: N/A - Maternal Vital Signs Maternal Temperature: N/A Maternal Blood Pressure: N/A Signs of Preeclampsia: N/A Maternal Respirations: N/A - Pain Assessment Pain Location and Character: Abdomen Pain Scale Used: Numeric (1 - 10) Pain Intensity: 7 Pain Management Goal: 2 Pain Description: *Acute, Cramping Pain Frequency: Intermittent Pain Duration Units: Minutes Pain Behavior: Vocalization Pain Aggravating Factors: Contractions - Maternal Trauma Maternal Trauma: N/A - Assessment - Baby A Heart Rate: 130 Heart Rate - NICHD Category: Category I (Normal) = 0 NST: Reactive Position: N/A Station: N/A - Total Score Total Score - Baby A: 6 Total Score - Baby B: 6 Total Score - Baby C: 6 - Post Treatment Level of Risk Post Treatment Level of Risk - Baby A: Medium (6-9) Post Treatment Level of Risk - Baby B: Medium (6-9) Post Treatment Level of Risk - Baby C: Medium (6-9) Physician Notification (Post) - Physician Notified Physician Notified Date: 09/19/20 Physician Notified Time: 12:00 Physician/Practitioner Notified:: Buzz Spoke With: Buzz - Notification Comment Comment: Reactive NST and no cervical chambers in 1 hour, pt cleared for d/c home with follow up instructions. Disposition - Disposition OB Disposition: Discharge to home Discharge Date: 09/19/20 Discharge Time: 12:40 I agree with the RN Medical Screening Exam: Yes Case reviewed; plan agreed upon as documented in EMR&OBIX.: Yes Diagnosis: FALSE LABOR BEFORE 37 COMPLETED WEEKS OF GEST, THIRD TRI
== END 2020-09-19 12:40 | disposition home or self-care (01) ==
LOC: FBPOP 10:54
PROVIDERS: ATTEND Obstetrics & Gynecology
DX: O47.03 False labor before 37 completed weeks of gestation, third trimester (principal); Z3A.36 36 weeks gestation of pregnancy
CPT/HCPCS: 59025; 99213

== ENCOUNTER 2020-09-30 06:00 | Inpatient (IN) | payer BC ==
[2020-09-30] MEDS ORDERED: METHYLERGONOVINE 0.2 MG/ML 1 ML AMP IM PRN (07:10)
[2020-09-30] MEDS ORDERED: OXYTOCIN 10 UNIT/ML 1 ML VIAL IM PRN (07:10)
[2020-09-30] MEDS ORDERED: TERBUTALINE 1 MG/ML VIAL SQ PRN (07:10)
[2020-09-30] MEDS ORDERED: LIDOCAINE 0.5% (PF) 5 MG/ML (50 ML SDV) SQ PRN (07:10)
[2020-09-30] MEDS ORDERED: CARBOPROST TROMETHAMINE 250 MCG/ML 1 ML AMP IM PRN (07:10)
[2020-09-30] MEDS ORDERED: OXYTOCIN 30 UNITS/500 ML NS 30 UNIT in SALINE 1 500ML.BAG IV SCH (07:15)
[2020-09-30] MEDS: LACTATED RINGERS 1,000 ML IV SCH ×4 (08:05→19:50)
[2020-09-30 08:11] LABS: Basophils % (A) 0 %; Eosinophils # (A) 0.1 k/uL (0-0.7); Eosinophils % (A) 1 %; HGB 12.4 gm/dL (11.4-16.0); Lymphocytes # (A) 1.9 k/uL (1.0-4.8); Lymphocytes % (A) 22 %; MCHC 34.5 g/dL (31.0-37.0); MCV 89.9 fL (80.0-100.0); Mean Platelet Volume 7.5; Monocytes # (A) 0.7 k/uL (0-1.0); Monocytes % (A) 8 %; Neutrophils % (A) 68 %; Platelet Count 240 k/uL (150-450); RBC 4.01 m/uL (3.80-5.40); RDW 12.7 % (11.5-15.5); WBC 8.8 k/uL (4.0-11.0)
[2020-09-30] MEDS: BUTORPHANOL 1 MG/ML 1 ML VIAL IV PRN ×2 (13:00→16:42)
[2020-09-30] MEDS ORDERED: ROPIVACAINE 5MG/ML 20ML VIAL ONE (20:46)
[2020-09-30] MEDS ORDERED: fentaNYL (PF) 50 MCG/ML 5 ML AMP ONE (20:46)
[2020-09-30] MEDS ORDERED: SODIUM CHLORIDE 0.9% 100 ML BAG ONE (20:46)
[2020-09-30] MEDS ORDERED: AMPICILLIN 2,000 MG in SODIUM CHLORIDE 0.9% 100 ML IVPB STA (23:35)
[2020-10-01] MEDS: LACTATED RINGERS 1,000 ML IV SCH (01:08)
[2020-10-01] MEDS ORDERED: AMPICILLIN 1,000 MG in SODIUM CHLORIDE 0.9% 50 ML IVPB SCH (04:00)
[2020-10-01] MEDS ORDERED: ROPIVACAINE 100 MG, fentaNYL (PF). 200 MCG in SODIUM CHLORIDE 0.9% 76 ML EPIDURAL ONE (05:45)
[2020-10-01] MEDS ORDERED: HYDROCORTISONE 2.5% RECTAL CREAM 30 GM TUBE RECTAL PRN (07:28)
[2020-10-01] MEDS ORDERED: diphenhydrAMINE 50 MG/ML 1 ML VIAL IVP PRN ×2 (07:28)
[2020-10-01] MEDS ORDERED: LANOLIN CREAM 5 GM TUBE TOPICAL PRN (07:28)
[2020-10-01] MEDS ORDERED: ZOLPIDEM 5 MG TAB PO PRN (07:28)
[2020-10-01] MEDS ORDERED: ACETAMINOPHEN TAB 325 MG TAB PO PRN (07:28)
[2020-10-01] MEDS ORDERED: diphenhydrAMINE 50 MG CAP PO PRN (07:28)
[2020-10-01] MEDS ORDERED: diphenhydrAMINE 25 MG CAP PO PRN (07:28)
[2020-10-01] MEDS ORDERED: SIMETHICONE 80 MG CHEWABLE PO PRN (07:28)
[2020-10-01] MEDS ORDERED: BENZOCAINE/MENTHOL SPRAY 1 GM/SPRAY AEROSOL TOPICAL PRN (07:28)
--- NOTE | 2020-10-01 07:31 | P.HPOB ---
History of Present Illness H&P Date: 10/01/20 Chief Complaint: at term: Symptomatic cholelithiasis Anna is a 20-year-old at 37 weeks 5 days gestation arise for induction of labor for some somatic cholelithiasis. She's had gallstones and gallstone pain since approximately 24 weeks symptoms have gotten worse and worse and she is struggling to continue to eat and she is having trouble functioning due to her pain. We did discuss plan with maternal medicine recommended delivery so that she will be able to get treatment for her gallstones sooner rather than later. Pertinent labs A+ blood type Rh and it was negative, rubella was immune, hepatitis B surface antigen/RPR/HIV and GBS were all negative. Category 1 tracings noted. She is dilated to 1 cm 70% effaced and -3 station with cervix being posterior. She is aware of increased risk for section with planned induction. She expects that she will use an epidural at the pain gets too bad and will plan Pitocin augmentation of labor. She is a no blood products patient due to taoism preferences and she would need for section arise will need to have a discussion on potential blood products that she may be okay with. Past Medical History Past Medical History: No Reported History Additional Past Medical History / Comment(s): anxiety History of Any Multi-Drug Resistant Organisms: None Reported Past Surgical History: No Surgical Hx Reported Additional Past Surgical History / Comment(s): oral surgery Past Anesthesia/Blood Transfusion Reactions: No Reported Reaction Past Psychological History: Anxiety Smoking Status: Never smoker Past Alcohol Use History: None Reported Past Drug Use History: None Reported - Past Family History Mother Family Medical History: Congestive Heart Failure (CHF), Coronary Artery Disease (CAD), CVA/TIA, Diabetes Mellitus Medications and Allergies Home Medications Medication Instructions Recorded Confirmed Type Pnv No.95/Ferrous Fum/Folic AC 1 tab PO DAILY 06/07/20 09/30/20 History [ Multivitamin Tablet] Allergies Allergy/AdvReac Type Severity Reaction Status Date / Time No Known Allergies Allergy Verified 09/30/20 07:10 Exam Osteopathic Statement: *. No significant issues noted on an osteopathic structural exam other than those noted in the History and Physical/Consult. Intake and Output 09/30/20 10/01/20 10/01/20 22:59 06:59 14:59 Intake Total 1000 Output Total 600 Balance 400 Intake: IV 1000 Output: Urine 600 - OBG Physical Exam Breast: both: normal (no masses) Abdomen: Morbid obesity Abdomen: bowel sounds normal, no diffuse tenderness, no bruit present, no guarding noted, no hepatomegaly, no splenomegaly, no mass Vulva: both: normal Vagina: normal moisture, no discharge Cervix: no lesion, no discharge Uterus: normal size, normal contour Adnexa: both: normal Anus/Rectum: normal perianal skin, no rectal mass, no hemorrhoids, heme negative Results Result Diagrams: 09/30/20 07:46
--- NOTE | 2020-10-01 07:36 | P.PROBDLV ---
Vaginal Delivery Note - . Vaginal Delivery Note: Through the evening, Anna made very slow progress she had only dilated approximately 1 cm in about 11 hours of Pitocin following artificial rupture membranes. At that time we did discuss possible offering it and explained that she made so little change and was unclear why she would not not have a change was concerned about possible cephalopelvic disproportion, possible tethered build cord, possible shoulder issues despite normal sized ultrasounds. She is adamant that she did not have a section unless there was a issue or some issue with her. She is very scared that it will slow down her ability to get her gallbladder out. This discussion was at 9 PM. At approximately 11 PM we did have a discussion after getting exam she was dilated approximately 3 cm she made 1 cm change and that 2 hour timeframe I did explain at that point that she was making change and that we would now move forward with hopefully getting her delivered vaginally but we did have another long discussion on the just because she may change now doesn't and she is given continue to make change. She couldn't get to complete and pushed for to our is instilled of needing a as I really couldn't say for certain why her progress had been so slow. Again she is adamant that she move forward with the attempt at vaginal delivery. I did check her again at 4:30 in the morning and at that time she was 9 cm 0 station. At that time due to how long her membranes had been ruptured we did discuss again blood product issues with my concern over possible atony from extended Pitocin exposure. I did explain all this and explained that there might be, but hopefully not, and need for surgical intervention should the atony not respond to medications she and her family understand and hopefully this would not be the case but that we are at least aware of the possibility and being proactive in trying to make sure that everything is set if something were to happen. Ultimately she progressed complete and pushing with spontaneous vaginal delivery of a viable female over an intact perineum. Falling deliver the head a nuchal cord 2 was noted from left occiput anterior position. Anterior posterior shoulders were then easily delivered followed by the remainder of the baby. Mouth nares were then bulb suctioned and baby was placed mother's abdomen where the umbilical cord was allowed to pulsate for 30 seconds prior to clamping and cutting. Nursery personnel was present and assumed care. Placenta was then delivered intact and Pitocin was added to the IV. Small skin avulsions are noted but no true lacerations and no repairs made. Apgars were 9 and 9 at one and 5 minutes respectively and the weight was 7 lbs. 4 oz. We'll monitor very closely over the next 2 hours for uterine atony
[2020-10-01] MEDS: IBUPROFEN 600 MG TAB PO SCH ×2 (08:06→18:14)
[2020-10-01] MEDS: SENNOSIDES-DOCUSATE SODIUM 1 EACH TAB PO SCH (08:06)
[2020-10-01 22:56] VITALS: RESP 18
[2020-10-02] MEDS: IBUPROFEN 600 MG TAB PO SCH ×3 (00:02→06:11)
[2020-10-02] MEDS: SENNOSIDES-DOCUSATE SODIUM 1 EACH TAB PO SCH ×2 (00:03→08:05)
--- NOTE | 2020-10-02 07:15 | P.PNOBGVD ---
Subjective - Subjective Patient reports: Reports appetite normal, Reports voiding normally, Reports pain well controlled, Reports ambulating normally : doing well Objective - Latest Vital Signs Latest vital signs: Vital Signs Temp Pulse Resp BP Pulse Ox 10/02/20 00:00 98.5 F 71 18 115/72 98 10/01/20 20:00 98.4 F 88 18 115/77 98 10/01/20 16:00 98.1 F 98 16 118/75 10/01/20 12:00 98.2 F 97 16 111/73 10/01/20 09:32 97.0 F L 104 H 18 111/56 10/01/20 09:02 109 H 18 129/70 10/01/20 08:32 112 H 18 121/57 10/01/20 08:17 110 H 17 129/60 10/01/20 08:02 98.4 F 110 H 18 126/60 10/01/20 07:47 111 H 17 133/63 10/01/20 07:32 99.4 F 111 H 18 135/63 Intake and Output 10/01/20 10/02/20 10/02/20 22:59 06:59 14:59 Other: Voiding Method Toilet # Voids 2 - Exam Lungs: bilateral: normal Chest: Normal S1, Normal S2 Extremities: Present: normal Abdomen: Present: normal appearance, soft Uterus: Present: normal, firm Assessment and Plan Assessment: day #1. Patient is resting without new complaints and wishes to go home. Vital signs are stable she's afebrile. Uterus is firm nontender she's h aving normal lochia. My impression is this is a normal course. Plan is to continue routine care discharge home follow up with Dr. Hightower in 6 weeks (1) Vaginal delivery Current Visit: Yes Status: Acute Code(s): O80 - ENCOUNTER FOR FULL-TERM UNCOMPLICATED DELIVERY SNOMED Code(s): 068491125
--- NOTE | 2020-10-02 07:24 | P.DS ---
Providers Date of admission: 09/30/20 06:58 Expected date of discharge: 10/02/20 Attending physician: French Hightower Primary care physician: Stated None - Discharge Diagnosis(es) (1) Vaginal delivery Current Visit: Yes Status: Acute Hospital Course: Please see dictated H&P for this patient's admission. In brief summary this is a 20-year-old avid a 1 para 0 female admitted for induction of labor. Patient goes on to have a vaginal delivery of viable female . Please see dictated delivery note. day 1 patient wishes to go home felt be stable for discharge home follow up with Dr. Hightower in 6 weeks. Procedures: Induction of labor and normal vaginal delivery Patient Condition at Discharge: Good Plan - Discharge Summary New Discharge Prescriptions: New Ibuprofen [Motrin] 600 mg PO Q6H #30 tab oxyCODONE HCL [OxyIR] 5 mg PO Q6H PRN #12 tab PRN Reason: Pain No Action Pnv No.95/Ferrous Fum/Folic AC [ Multivitamin Tablet] 1 tab PO DAILY Discharge Medication List Pnv No.95/Ferrous Fum/Folic AC [ Multivitamin Tablet] 1 tab PO DAILY 06/07/20 [History] Ibuprofen [Motrin] 600 mg PO Q6H #30 tab 10/02/20 [Rx] oxyCODONE HCL [OxyIR] 5 mg PO Q6H PRN #12 tab 10/02/20 [Rx] Follow up Appointment(s)/Referral(s): French Hightower DO [Doctor of Osteopathic Medicine] - 11/08/20 2:30 pm Patient Instructions/Handouts: Vaginal Delivery (DC) Activity/Diet/Wound Care/Special Instructions: No intercourse or anything per vagina for 6 weeks. Please call if any fever, chills, excessive vaginal bleeding, and/or abdominal pain. Discharge Disposition: HOME SELF-CARE
[2020-10-02 09:29] VITALS: BP 125/87; PULSE 70; TEMP 98.3
== END 2020-10-02 13:30 | disposition home or self-care (01) | DRG 807 ==
LOC: 4FBP 06:58
PROVIDERS: ADMIT Obstetrics & Gynecology; ATTEND Obstetrics & Gynecology
PROC: 10E0XZZ Delivery of Products of Conception, External Approach (ICD-10-PCS; principal; 2020-10-01)
PROC: 10907ZC Drainage of Amniotic Fluid, Therapeutic from Products of Conception, Via Natural or Artificial Opening (ICD-10-PCS; 2020-10-01)
PROC: 3E033VJ Introduction of Other Hormone into Peripheral Vein, Percutaneous Approach (ICD-10-PCS; 2020-10-01)
PROC: 00HU33Z Insertion of Infusion Device into Spinal Canal, Percutaneous Approach (ICD-10-PCS; 2020-10-01)
PROC: 3E0R3NZ Introduction of Analgesics, Hypnotics, Sedatives into Spinal Canal, Percutaneous Approach (ICD-10-PCS; 2020-10-01)
DX: O99.62 Diseases of the digestive system complicating childbirth (principal); Z37.0 Single live birth; K80.20 Calculus of gallbladder without cholecystitis without obstruction; Z3A.37 37 weeks gestation of pregnancy; O69.81X0 Labor and delivery complicated by cord around neck, without compression, not applicable or unspecified; Z82.49 Family history of ischemic heart disease and other diseases of the circulatory system; Z83.3 Family history of diabetes mellitus
CPT/HCPCS: 85025; 86850; 86900; 86901; 88307

== ENCOUNTER 2020-10-10 19:06 | Emergency (ER) | payer BC ==
[2020-10-10 19:18] VITALS: TEMP 98.4
[2020-10-10] MEDS ORDERED: ONDANSETRON 4 MG/2 ML VIAL IVP STA (19:25)
[2020-10-10] MEDS ORDERED: MORPHINE SULFATE 4 MG/ML SYRINGE IV STA (19:25)
[2020-10-10] MEDS ORDERED: SODIUM CHLORIDE 0.9% 1,000 ML IV STA (19:25)
[2020-10-10 19:41] LABS: Basophils # (A) 0.1 k/uL (0-0.2); Basophils % (A) 1 %; Eosinophils # (A) 0.2 k/uL (0-0.7); Eosinophils % (A) 2 %; HCT 40.7 % (34.0-46.0); HGB 13.8 gm/dL (11.4-16.0); Lymphocytes # (A) 2.8 k/uL (1.0-4.8); Lymphocytes % (A) 32 %; MCH 29.9 pg (25.0-35.0); MCHC 33.8 g/dL (31.0-37.0); MCV 88.6 fL (80.0-100.0); Mean Platelet Volume 6.9; Monocytes # (A) 0.5 k/uL (0-1.0); Monocytes % (A) 6 %; Neutrophils % (A) 58 %; Platelet Count 380 k/uL (150-450); RDW 12.2 % (11.5-15.5); WBC 8.7 k/uL (4.0-11.0)
--- NOTE | 2020-10-10 19:47 | ED ---
Abdominal Pain HPI - General Chief Complaint: Abdominal Pain Stated Complaint: Abd pain/9 days Time Seen by Provider: 10/10/20 19:20 Source: patient Mode of arrival: ambulatory Limitations: no limitations - History of Present Illness Initial Comments: 20 year-old female patient who is 9 days post after vaginal delivery, presents to the emergency department for evaluation of right upper quadrant abdominal pain that started 30 minutes ago. Patient states that she had intermittent right upper quadrant pain throughout her . She was found to have gallstones and they were waiting to address it until after she delivered. Patient states this is the first time she has had pain since delivering. States that the pain started suddenly and is worse than it has every been. She reports nausea, no vomiting. Denies fever. Has been having some mild constipation since the . She state she last ate around 2pm and had a salad. Patient denies any recent rash, cough, shortness of breath, chest pain, back pain, numbness, tingling, dizziness, weakness, hematuria, dysuria, urinary urgency, urinary frequency, headache, visual changes, or any other complaints. - Related Data Home Medications Medication Instructions Recorded Confirmed Pnv No.95/Ferrous Fum/Folic AC 1 tab PO DAILY 06/07/20 10/10/20 [ Multivitamin Tablet] Ibuprofen [Motrin] 600 mg PO Q6H PRN 10/10/20 10/10/20 Previous Rx's Medication Instructions Recorded oxyCODONE HCL [OxyIR] 5 mg PO Q6H PRN #12 tab 10/02/20 Ondansetron [Zofran ODT] 4 mg PO Q8HR PRN #10 tab 10/10/20 Allergies Allergy/AdvReac Type Severity Reaction Status Date / Time No Known Allergies Allergy Verified 10/10/20 20:40 Review of Systems ROS Statement: Those systems with pertinent positive or pertinent negative responses have been documented in the HPI. ROS Other: All systems not noted in ROS Statement are negative. Past Medical History Past Medical History: No Reported History Additional Past Medical History / Comment(s): anxiety History of Any Multi-Drug Resistant Organisms: None Reported Past Surgical History: No Surgical Hx Reported Additional Past Surgical History / Comment(s): oral surgery Past Anesthesia/Blood Transfusion Reactions: No Reported Reaction Past Psychological History: Anxiety Smoking Status: Never smoker Past Alcohol Use History: None Reported Past Drug Use History: None Reported - Past Family History Mother Family Medical History: Congestive Heart Failure (CHF), Coronary Artery Disease (CAD), CVA/TIA, Diabetes Mellitus General Exam Limitations: no limitations General appearance: alert, in no apparent distress, other (This is a well- developed, well-nourished adult female patient in mild distress related to pain. Vital signs upon presentation are temperature 98.4F, pulse 94, respirations 18, blood pressure 160/117, pulse ox 97% on room air.) Eye exam: Present: normal appearance, PERRL, EOMI. Absent: scleral icterus, conjunctival injection, periorbital swelling Respiratory exam: Present: normal lung sounds bilaterally. Absent: respiratory distress, wheezes, rales, rhonchi, stridor Cardiovascular Exam: Present: regular rate, normal rhythm, normal heart sounds. Absent: systolic murmur, diastolic murmur, rubs, gallop, clicks GI/Abdominal exam: Present: soft, tenderness (right upper quadrant), normal bowel sounds. Absent: distended, guarding, rebound, rigid Neurological exam: Present: alert, oriented X3, CN II-XII intact Psychiatric exam: Present: normal affect, normal mood Skin exam: Present: warm, dry, intact, normal color. Absent: rash Course Vital Signs 10/10/20 10/10/20 10/10/20 19:13 20:04 22:00 Temperature 98.4 F 98.4 F Pulse Rate 94 81 70 Respiratory 18 17 16 Rate Blood Pressure 168/117 128/84 127/81 O2 Sat by Pulse 97 100 100 Oximetry Medical Decision Making - Medical Decision Making 20 year-old female patient presents to the emergency department for evaluation of right upper quadrant pain. She is 9 days after vaginal delivery. Has known gallstones and had trouble with similar pain throughout . BP was elevated upon arrival, she was quite anxious and in a lot of pain. This did improve after pain medications. Labs were unremarkable. Urinalysis is contaminated with blood. US of the gallbladder shows gall stones, no wall thickening, no distention, no dilated ducts. Reevaluation patient is resting comfortably in bed. I did discuss findings and results with her. She will be able to be discharged with pain and nausea medicine. She is instructed to call her surgeon first thing in the morning. Return parameters were discussed in detail. She verbalizes understanding and agrees with this plan. Case discussed with my attending Dr. Aponte. - Lab Data Result diagrams: 10/10/20 19:30 10/10/20 19:30 Lab Results 10/10/20 10/10/20 10/10/20 Range/Units 19:30 19:30 19:30 WBC 8.7 (4.0-11.0) k/uL RBC 4.60 (3.80-5.40) m/uL Hgb 13.8 (11.4-16.0) gm/dL Hct 40.7 (34.0-46.0) % MCV 88.6 (80.0-100.0) fL MCH 29.9 (25.0-35.0) pg MCHC 33.8 (31.0-37.0) g/dL RDW 12.2 (11.5-15.5) % Plt Count 380 (150-450) k/uL MPV 6.9 Neutrophils % 58 % Lymphocytes % 32 % Monocytes % 6 % Eosinophils % 2 % Basophils % 1 % Neutrophils # 5.0 (1.3-7.7) k/uL Lymphocytes # 2.8 (1.0-4.8) k/uL Monocytes # 0.5 (0-1.0) k/uL Eosinophils # 0.2 (0-0.7) k/uL Basophils # 0.1 (0-0.2) k/uL Sodium 138 (137-145) mmol/L Potassium 4.6 (3.5-5.1) mmol/L Chloride 105 (98-107) mmol/L Carbon Dioxide 24 (22-30) mmol/L Anion Gap 9 mmol/L BUN 12 (7-17) mg/dL Creatinine 0.70 (0.52-1.04) mg/dL Est GFR (CKD-EPI)AfAm >90 (>60 ml/min/1.73 sqM) Est GFR (CKD-EPI)NonAf >90 (>60 ml/min/1.73 sqM) Glucose 78 (74-99) mg/dL Plasma Lactic Acid Tanner 0.8 (0.7-2.0) mmol/L Calcium 10.0 (8.4-10.2) mg/dL Total Bilirubin 0.4 (0.2-1.3) mg/dL AST 28 (14-36) U/L ALT 19 (4-34) U/L Alkaline Phosphatase 114 (38-126) U/L Total Protein 7.1 (6.3-8.2) g/dL Albumin 4.1 (3.5-5.0) g/dL Lipase 72 (23-300) U/L Urine Color Urine Appearance (Clear) Urine pH (5.0-8.0) Ur Specific Lamar (1.001-1.035) Urine Protein (Negative) Urine Glucose (UA) (Negative) Urine Ketones (Negative) Urine Blood (Negative) Urine Nitrite (Negative) Urine Bilirubin (Negative) Urine Urobilinogen (<2.0) mg/dL Ur Leukocyte Esterase (Negative) Urine RBC (0-5) /hpf Urine WBC (0-5) /hpf Urine WBC Clumps (None) /hpf Ur Squamous Epith Cells (0-4) /hpf Urine Bacteria (None) /hpf Urine Mucus (None) /hpf /18/ Range/Units 20:04 WBC (4.0-11.0) k/uL RBC (3.80-5.40) m/uL Hgb (11.4-16.0) gm/dL Hct (34.0-46.0) % MCV (80.0-100.0) fL MCH (25.0-35.0) pg MCHC (31.0-37.0) g/dL RDW (11.5-15.5) % Plt Count (150-450) k/uL MPV Neutrophils % % Lymphocytes % % Monocytes % % Eosinophils % % Basophils % % Neutrophils # (1.3-7.7) k/uL Lymphocytes # (1.0-4.8) k/uL Monocytes # (0-1.0) k/uL Eosinophils # (0-0.7) k/uL Basophils # (0-0.2) k/uL Sodium (137-145) mmol/L Potassium (3.5-5.1) mmol/L Chloride (98-107) mmol/L Carbon Dioxide (22-30) mmol/L Anion Gap mmol/L BUN (7-17) mg/dL Creatinine (0.52-1.04) mg/dL Est GFR (CKD-EPI)AfAm (>60 ml/min/1.73 sqM) Est GFR (CKD-EPI)NonAf (>60 ml/min/1.73 sqM) Glucose (74-99) mg/dL Plasma Lactic Acid Tanner (0.7-2.0) mmol/L Calcium (8.4-10.2) mg/dL Total Bilirubin (0.2-1.3) mg/dL AST (14-36) U/L ALT (4-34) U/L Alkaline Phosphatase (38-126) U/L Total Protein (6.3-8.2) g/dL Albumin (3.5-5.0) g/dL Lipase (23-300) U/L Urine Color Yellow Urine Appearance Cloudy H (Clear) Urine pH 6.5 (5.0-8.0) Ur Specific Lamar 1.019 (1.001-1.035) Urine Protein Trace H (Negative) Urine Glucose (UA) Negative (Negative) Urine Ketones Negative (Negative) Urine Blood Large H (Negative) Urine Nitrite Negative (Negative) Urine Bilirubin Negative (Negative) Urine Urobilinogen <2.0 (<2.0) mg/dL Ur Leukocyte Esterase Large H (Negative) Urine RBC 136 H (0-5) /hpf Urine WBC 40 H (0-5) /hpf Urine WBC Clumps Few H (None) /hpf Ur Squamous Epith Cells 2 (0-4) /hpf Urine Bacteria Rare H (None) /hpf Urine Mucus Occasional H (None) /hpf - Radiology Data Radiology results: report reviewed Ultrasound of the right upper quadrant abdomen is obtained. Report was reviewed in its entirety. Impression by Dr. Martines shows multiple gallstones. No dilated ducts. No focal liver defect. Disposition Clinical Impression: Abdominal pain, Cholelithiasis Disposition: HOME SELF-CARE Condition: Good Instructions (If sedation given, give patient instructions): Gallstones (ED), Abdominal Pain (ED) Additional Instructions: Follow-up with your surgeon as soon as possible. Take medications as directed. Return to the emergency department for any new, worsening, or concerning symptoms. Prescriptions: Ondansetron [Zofran ODT] 4 mg PO Q8HR PRN #10 tab PRN Reason: Nausea Is patient prescribed a controlled substance at d/c from ED?: No Referrals: Joyce Clancy MD [Primary Care Provider] - 1-2 days Darron Triplett MD [STAFF PHYSICIAN] - 1-2 days Time of Disposition: 21:49
[2020-10-10 19:49] LABS: ALT 19 U/L (4-34); AST 28 U/L (14-36); African American GFR (CKD) >90 (>60 ml/min/1.73 sqM); Albumin 4.1 g/dL (3.5-5.0); Alkaline Phosphatase 114 U/L (38-126); Anion Gap 9 mmol/L; Blood Urea Nitrogen 12 mg/dL (7-17); Carbon Dioxide 24 mmol/L (22-30); Chloride 105 mmol/L (98-107); Glucose 78 mg/dL (74-99); Lipase 72 U/L (23-300); Non-African American GFR(CKD) >90 (>60 ml/min/1.73 sqM); Potassium 4.6 mmol/L (3.5-5.1); Sodium 138 mmol/L (137-145); Total Bilirubin 0.4 mg/dL (0.2-1.3); Total Protein 7.1 g/dL (6.3-8.2)
[2020-10-10 20:16] LABS: Appearance,Urine Cloudy (Clear); Bacteria,Urine Rare /hpf; Bilirubin,Urine Negative (Negative); Blood,Urine Large (Negative); Color,Urine Yellow; Glucose,Urine (UA) Negative (Negative); Ketones,Urine Negative (Negative); Leukocyte Esterase,Urine Large (Negative); Mucus,Urine Occasional /hpf; Nitrite,Urine Negative (Negative); PH, Urine 6.5 (5.0-8.0); Protein,Urine Trace (Negative); RBC,Urine 136 /hpf (0-5); Specific Gravity,Urine 1.019 (1.001-1.035); Squamous Epithelial Cell,Urine 2 /hpf (0-4); Urobilinogen,Urine <2.0 mg/dL (<2.0); WBC,Urine 40 /hpf (0-5)
[2020-10-10] MEDS ORDERED: MORPHINE SULFATE 4 MG/ML SYRINGE IVP STA (21:22)
--- NOTE | 2020-10-10 21:28 | US ---
EXAMINATION TYPE: US abdomen limited DATE OF EXAM: 10/10/2020 COMPARISON: US's CLINICAL HISTORY: Right upper quadrant. Abdominal pain EXAM MEASUREMENTS: Liver Length: 19.3 cm Gallbladder Wall: 0.2 cm CBD: 0.5 cm Right Kidney: 11.3 x 5.3 x 5.7 cm Known gallstones, 6 days post . Pancreas: not well visualized due to overlying bowel gas Liver: wnl Gallbladder: multiple small mobile stones with shadowing Evidence for sonographic Arrington's sign: Yes CBD: wnl Right Kidney: No hydronephrosis or masses seen IMPRESSION: There are multiple gallstones. No dilated ducts. No focal liver defect.
[2020-10-10] MEDS ORDERED: ONDANSETRON 4 MG ODT STARTER PACK 2 TAB BTL PO STA (21:47)
[2020-10-10] MEDS ORDERED: ACET/COD 300 MG/30 MG STARTER PACK 6 TAB BTL PO STA (21:47)
[2020-10-10 22:15] VITALS: BP 127/81; PULSE 70; RESP 16
== END 2020-10-10 22:05 | disposition home or self-care (01) ==
LOC: EC 19:06
DX: K80.20 Calculus of gallbladder without cholecystitis without obstruction (principal); F41.9 Anxiety disorder, unspecified
CPT/HCPCS: 36415; 80053; 83605; 83690; 85025; 81001; 87086; 76705; 99284; 96374; 96375; 96376; 96361; J2270; J2405; S0119

== ENCOUNTER 2020-10-20 07:29 | Day surgery (SDC) | payer BC ==
[2020-10-18 10:44] VITALS: BMI 41.0
[~2020-10-20 07:29] MED LIST: ACETAMINOPHEN TAB 500 MG TAB PO PRN; DEXAMETHASONE SOD PHOSPHATE 4 MG/ML 1 ML VIAL IV ONE; HEPARIN SODIUM,PORCINE/PF 5,000 UNIT/0.5 ML SYRINGE SQ PRN; HYDROmorphone 0.5 MG/0.5 ML SYRINGE IVP PRN; LACTATED RINGERS 1,000 ML IV SCH; LIDOCAINE 1% (10MG/ML) FOR IV START INTRADERMA PRN; MIDAZOLAM 2 MG/2 ML VIAL IV PRN
[2020-10-20] MEDS ORDERED: ONDANSETRON 4 MG/2 ML VIAL ONE (08:11)
--- NOTE | 2020-10-20 09:50 | P.GSHP ---
History of Present Illness H&P Date: 10/20/20 Chief Complaint: Right upper quadrant pain This a 20-year-old female who presents today for laparoscopic cholestatic. Patient's had complaints of biliary colic and right upper quadrant pain. She is known to have gallstones. Past Medical History Past Medical History: No Reported History Additional Past Medical History / Comment(s): anxiety History of Any Multi-Drug Resistant Organisms: None Reported Past Surgical History: No Surgical Hx Reported Additional Past Surgical History / Comment(s): Oral surgery. Past Anesthesia/Blood Transfusion Reactions: No Reported Reaction Past Psychological History: Anxiety Smoking Status: Never smoker Past Alcohol Use History: None Reported Past Drug Use History: None Reported - Past Family History Mother Family Medical History: Congestive Heart Failure (CHF), Coronary Artery Disease (CAD), CVA/TIA, Diabetes Mellitus Medications and Allergies Home Medications Medication Instructions Recorded Confirmed Type Pnv No.95/Ferrous Fum/Folic AC 1 tab PO DAILY 06/07/20 10/18/20 History [ Multivitamin Tablet] Acetaminophen-Codeine 300-30mg 1 tab PO Q6H PRN 10/18/20 10/20/20 History [Tylenol w/codeine #3] Allergies Allergy/AdvReac Type Severity Reaction Status Date / Time No Known Allergies Allergy Verified 10/20/20 08:04 Surgical - Exam Vital Signs Temp Pulse Resp BP Pulse Ox 97.7 F 75 16 130/88 98 10/20/20 07:59 10/20/20 07:59 10/20/20 07:59 10/20/20 07:59 10/20/20 07:59 - General well developed, well nourished, no distress - Eyes PERRL - ENT normal pinna - Neck no masses - Respiratory normal expansion - Cardiovascular Rhythm: regular - Abdomen Abdomen: soft, non tender Assessment and Plan Assessment: Cholelithiasis We'll perform laparoscopic cholecystectomy
[2020-10-20] MEDS ORDERED: MIDAZOLAM 2 MG/2 ML VIAL ONE (09:58)
[2020-10-20] MEDS ORDERED: fentaNYL (PF) 50 MCG/ML 2 ML AMP ONE (09:58)
[2020-10-20] MEDS ORDERED: HYDROmorphone (PF) 1 MG/ML ONE (09:58)
[2020-10-20] MEDS ORDERED: ROCURONIUM 10 MG/ML (5 ML VIAL) IV ONE (09:58)
[2020-10-20] MEDS ORDERED: PROPOFOL 10 MG/ML 20 ML VIAL IV ONE (09:58)
[2020-10-20] MEDS ORDERED: LIDOCAINE 1% INJ 10MG/ML (20 ML MDV) ONE (09:58)
[2020-10-20] MEDS ORDERED: ROPIVACAINE 5 MG/ML 30 ML VIAL ONE (09:58)
[2020-10-20] MEDS ORDERED: SUCCINYLCHOLINE CHLORIDE 100 MG/5 ML SYR IV ONE (09:58)
[2020-10-20] MEDS ORDERED: BUPIVACAINE (PF) 0.5% 30 ML VIAL SQ ONE (10:25)
[2020-10-20] MEDS ORDERED: LACTATED RINGERS 1,000 ML IV ONE (10:29)
--- NOTE | 2020-10-20 10:34 | P.ANPRN ---
Procedure Note - Anesthesia - Nerve Block Performed Bilateral Transversus Abdominis Single Time Out Performed: Yes Date of Procedure: 10/20/20 Procedure Start Time: 08:53 Procedure Stop Time: 08:58 Location of Patient: PreOp Indication: Acute Post-Operative Pain, Analgesia, Requested by Surgeon Sedation Type: Sedate with meaningful contact maintained Preparation: Sterile Prep Position: Supine Needle Types: Pajunk Needle Gauge: 21 Ultrasound used to visualize needle placement: Yes Ultrasound used to observe medication spread: Yes Injectate: 0.5% Ropivacaine (see comment for volume) (30cc) Blood Aspirated: No Pain Paresthesia on Injection Noted: No Resistance on Injection: Normal Image Stored and Saved: Yes Events: Uneventful and Well Tolerated
--- NOTE | 2020-10-20 10:55 | P.OP ---
Date of Procedure: 10/20/20 Preoperative Diagnosis: Cholelithiasis Postoperative Diagnosis: Cholelithiasis Procedure(s) Performed: Laparoscopic cholecystectomy Anesthesia: MEÑO Surgeon: Darron Triplett Estimated Blood Loss (ml): 5 Pathology: other (gAll bladder) Condition: stable Disposition: PACU Description of Procedure: The patient was placed on the operating table. The patient received a general endotracheal tube anesthesia. The patients abdomen was prepped and draped in the usual sterile fashion. Through an infraumbilical stab incision, the fascia of the anterior abdominal wall was grasped with a pair of Kochers and then the Veress needle was placed in the peritoneal cavity. Position of the Veress needle was confirmed with positive drop test. The abdomen was then insufflated. After adequate insufflation, the 10 mm trocar was placed in the peritoneal cavity. Following this the laparoscope was placed in the peritoneal cavity. The patient was placed in the head-up, right side up position and then a 5 mm trocar was placed in the right lateral and right subcostal position under direct visualization. A 8 mm trocar was placed in the epigastric position. The gallbladder was grasped in the fundus and infundibulum. Traction on the gallbladder was placed in the lateral and the cephalad positions. The triangle of Calot was visualized.. The cystic duct was bluntly dissected until the union of the cystic duct and common bile duct was seen. A critical view of safety was achieved. The cystic duct was then divided and sealed with the Harmonic scissors. A PDS Endoloop was then placed throughout the cystic duct stump. The cystic artery divided and sealed with the Harmonic scissors. The gallbladder was then removed from the liver bed using Harmonic scissors. The gallbladder was then extracted through the epigastric port site. Operative field was checked for any bleeding spots and Harmonic scissors was used to coagulate the liver bed. The abdomen was irrigated. The trocars were removed. The skin was closed using interrupted 3-0 Vicryl suture. Dermabond dressing were applied. The patient tolerated the procedure well.
[2020-10-20 11:02] VITALS: TEMP 97.9
[2020-10-20 13:22] VITALS: BP 117/75; PULSE 77; RESP 16
== END 2020-10-20 13:22 | disposition home or self-care (01) ==
LOC: OR 07:29
PROVIDERS: ATTEND Surgery
DX: K80.10 Calculus of gallbladder with chronic cholecystitis without obstruction (principal); K80.70 Calculus of gallbladder and bile duct without cholecystitis without obstruction; F41.9 Anxiety disorder, unspecified; Z82.49 Family history of ischemic heart disease and other diseases of the circulatory system; Z83.3 Family history of diabetes mellitus; E66.9 Obesity, unspecified; Z68.41 Body mass index [BMI] 40.0-44.9, adult
CPT/HCPCS: 47562; 64488; 88304; J2250; J1100; J0690; J2405; J2001; J3010; J1170; J2795; J0330; J2704; J1644

== ENCOUNTER → 2021-03-09 | Outpatient (CLI) | payer BC ==
--- NOTE | 2021-03-09 12:48 | XR ---
EXAMINATION TYPE: XR chest 2V DATE OF EXAM: 03/09/2021 COMPARISON: NONE TECHNIQUE: PA and lateral views submitted. HISTORY: Cough FINDINGS: The lungs are clear and there is no pneumothorax, pleural effusion, or focal pneumonia. No evidence of interstitial edema. Heart size normal. IMPRESSION: 1. No acute process.
== END | disposition home or self-care (01) ==
LOC: RADXRMAIN 12:19
PROVIDERS: ATTEND Physician Assistant Medical
DX: J18.9 Pneumonia, unspecified organism (principal)
CPT/HCPCS: 71046

== ENCOUNTER 2021-03-10 15:18 | Emergency (ER) | payer BC ==
[2021-03-10 16:09] LABS: Basophils # (A) 0.1 k/uL (0-0.2); Basophils % (A) 1 %; Eosinophils # (A) 0.1 k/uL (0-0.7); Eosinophils % (A) 2 %; HGB 15.1 gm/dL (11.4-16.0); Lymphocytes # (A) 2.6 k/uL (1.0-4.8); Lymphocytes % (A) 37 %; MCH 31.6 pg (25.0-35.0); MCHC 35.2 g/dL (31.0-37.0); MCV 89.8 fL (80.0-100.0); Mean Platelet Volume 6.7; Monocytes # (A) 0.5 k/uL (0-1.0); Monocytes % (A) 7 %; Neutrophils # (A) 3.6 k/uL (1.3-7.7); Neutrophils % (A) 51 %; Platelet Count 295 k/uL (150-450); RBC 4.78 m/uL (3.80-5.40); WBC 7.1 k/uL (3.8-10.6)
[2021-03-10 16:22] LABS: ALT 56 U/L (4-34); AST 45 U/L (14-36); African American GFR (CKD) >90 (>60 ml/min/1.73 sqM); Albumin 4.1 g/dL (3.5-5.0); Alkaline Phosphatase 92 U/L (38-126); Anion Gap 11 mmol/L; Blood Urea Nitrogen 16 mg/dL (7-17); Calcium 9.4 mg/dL (8.4-10.2); Carbon Dioxide 22 mmol/L (22-30); Chloride 105 mmol/L (98-107); Glucose 94 mg/dL (74-99); Magnesium 1.9 mg/dL (1.6-2.3); Non-African American GFR(CKD) >90 (>60 ml/min/1.73 sqM); Potassium 3.9 mmol/L (3.5-5.1); Sodium 138 mmol/L (137-145); Total Bilirubin 0.3 mg/dL (0.2-1.3); Total Protein 7.5 g/dL (6.3-8.2)
[2021-03-10 16:24] LABS: INR 0.9 (<1.2); Partial Thromboplastin Time 23.2 sec (22.0-30.0); Prothrombin Time 9.8 sec (9.0-12.0)
--- NOTE | 2021-03-10 16:40 | ED ---
General Adult HPI - General Chief complaint: Upper Respiratory Infection Stated complaint: Covid+ SOB Time Seen by Provider: 03/10/21 15:25 Source: patient Mode of arrival: ambulatory Limitations: no limitations - History of Present Illness Initial comments: 21-year-old female presents to emergency Department with chief complaint of elevated. Patient reports she has not parents and symptoms including a nonproductive cough with occasional exertional dyspnea. She also reports right- sided chest pressure without any radiation. Reports the pressure is worse whenever she is taking deep breaths. She also reports feeling some diaphoretic episodes and chills but denies any fevers at home. Also reports sore throat or otalgia and clear bilateral rhinorrhea. He states several days ago she went to an urgent care and was treated with azithromycin and a steroid. Patient reports no significant improvement in her symptoms. States she had a chest x-ray yesterday that was ordered by her primary care physician which showed no acute findings. - Related Data Home Medications Medication Instructions Recorded Confirmed Pnv No.95/Ferrous Fum/Folic AC 1 tab PO DAILY 06/07/20 10/18/20 [ Multivitamin Tablet] Acetaminophen-Codeine 300-30mg 1 tab PO Q6H PRN 10/18/20 10/20/20 [Tylenol w/codeine #3] Previous Rx's Medication Instructions Recorded Acetaminophen Tab [Tylenol] 650 mg PO Q6H #30 tab 10/20/20 Docusate [Colace] 100 mg PO BID #20 capsule 10/20/20 Ibuprofen [Motrin] 600 mg PO Q6HR PRN #40 tab 10/20/20 oxyCODONE HCL [OxyIR] 5 mg PO Q6H PRN 3 Days #10 tab 10/20/20 Allergies Allergy/AdvReac Type Severity Reaction Status Date / Time No Known Allergies Allergy Verified 10/20/20 08:04 Review of Systems ROS Statement: Those systems with pertinent positive or pertinent negative responses have been documented in the HPI. ROS Other: All systems not noted in ROS Statement are negative. Past Medical History Past Medical History: No Reported History Additional Past Medical History / Comment(s): anxiety History of Any Multi-Drug Resistant Organisms: None Reported Past Surgical History: No Surgical Hx Reported Additional Past Surgical History / Comment(s): Oral surgery. Past Anesthesia/Blood Transfusion Reactions: No Reported Reaction Past Psychological History: Anxiety Smoking Status: Never smoker Past Alcohol Use History: None Reported Past Drug Use History: None Reported - Past Family History Mother Family Medical History: Congestive Heart Failure (CHF), Coronary Artery Disease (CAD), CVA/TIA, Diabetes Mellitus General Exam Limitations: no limitations General appearance: alert, in no apparent distress, obese Head exam: Present: atraumatic, normocephalic, normal inspection Eye exam: Present: normal appearance, PERRL, EOMI Pupils: Present: normal accommodation ENT exam: Present: normal exam, normal oropharynx, mucous membranes moist Neck exam: Present: normal inspection, full ROM. Absent: tenderness Respiratory exam: Present: normal lung sounds bilaterally. Absent: respiratory distress, wheezes, rales, rhonchi, stridor Cardiovascular Exam: Present: regular rate, normal rhythm, normal heart sounds. Absent: systolic murmur Extremities exam: Present: normal inspection, full ROM Back exam: Present: normal inspection, full ROM. Absent: tenderness Neurological exam: Present: alert, oriented X3 Psychiatric exam: Present: normal affect, normal mood Skin exam: Present: warm, dry, intact, normal color Course Vital Signs 03/10/21 15:19 Temperature 98.0 F Pulse Rate 87 Respiratory 19 Rate Blood Pressure 156/112 O2 Sat by Pulse 98 Oximetry Medical Decision Making - Medical Decision Making 21-year-old female presenting to the emergency department with a chief complaint of elevated. On physical examination, patient does not appear to be in respiratory distress. ENT examination is unremarkable. Lungs are clear to auscultation. Vital signs within normal limits. EKG is nonischemic. Chest x- ray obtained within 24 hours was unremarkable. Laboratory work is showing no acute findings. Troponin negative. D-dimer negative. Coags within normal limits. Patient will be given a monoclonal antibody. She is agreeable to treatment. Patient observed emergency department. She'll be discharged with co ld precautions. - Lab Data Result diagrams: 03/10/21 15:53 03/10/21 15:53 Lab Results 03/10/21 03/10/21 03/10/21 Range/Units 15:53 15:53 15:53 WBC 7.1 (3.8-10.6) k/uL RBC 4.78 (3.80-5.40) m/uL Hgb 15.1 (11.4-16.0) gm/dL Hct 43.0 (34.0-46.0) % MCV 89.8 (80.0-100.0) fL MCH 31.6 (25.0-35.0) pg MCHC 35.2 (31.0-37.0) g/dL RDW 12.0 (11.5-15.5) % Plt Count 295 (150-450) k/uL MPV 6.7 Neutrophils % 51 % Lymphocytes % 37 % Monocytes % 7 % Eosinophils % 2 % Basophils % 1 % Neutrophils # 3.6 (1.3-7.7) k/uL Lymphocytes # 2.6 (1.0-4.8) k/uL Monocytes # 0.5 (0-1.0) k/uL Eosinophils # 0.1 (0-0.7) k/uL Basophils # 0.1 (0-0.2) k/uL PT 9.8 (9.0-12.0) sec INR 0.9 (<1.2) APTT 23.2 (22.0-30.0) sec D-Dimer 0.31 (<0.60) mg/L FEU Sodium 138 (137-145) mmol/L Potassium 3.9 (3.5-5.1) mmol/L Chloride 105 (98-107) mmol/L Carbon Dioxide 22 (22-30) mmol/L Anion Gap 11 mmol/L BUN 16 (7-17) mg/dL Creatinine 0.64 (0.52-1.04) mg/dL Est GFR (CKD-EPI)AfAm >90 (>60 ml/min/1.73 sqM) Est GFR (CKD-EPI)NonAf >90 (>60 ml/min/1.73 sqM) Glucose 94 (74-99) mg/dL Calcium 9.4 (8.4-10.2) mg/dL Magnesium 1.9 (1.6-2.3) mg/dL Total Bilirubin 0.3 (0.2-1.3) mg/dL AST 45 H (14-36) U/L ALT 56 H (4-34) U/L Alkaline Phosphatase 92 (38-126) U/L Troponin I (0.000-0.034) ng/mL Total Protein 7.5 (6.3-8.2) g/dL Albumin 4.1 (3.5-5.0) g/dL 03/10/21 Range/Units 15:53 WBC (3.8-10.6) k/uL RBC (3.80-5.40) m/uL Hgb (11.4-16.0) gm/dL Hct (34.0-46.0) % MCV (80.0-100.0) fL MCH (25.0-35.0) pg MCHC (31.0-37.0) g/dL RDW (11.5-15.5) % Plt Count (150-450) k/uL MPV Neutrophils % % Lymphocytes % % Monocytes % % Eosinophils % % Basophils % % Neutrophils # (1.3-7.7) k/uL Lymphocytes # (1.0-4.8) k/uL Monocytes # (0-1.0) k/uL Eosinophils # (0-0.7) k/uL Basophils # (0-0.2) k/uL PT (9.0-12.0) sec INR (<1.2) APTT (22.0-30.0) sec D-Dimer (<0.60) mg/L FEU Sodium (137-145) mmol/L Potassium (3.5-5.1) mmol/L Chloride (98-107) mmol/L Carbon Dioxide (22-30) mmol/L Anion Gap mmol/L BUN (7-17) mg/dL Creatinine (0.52-1.04) mg/dL Est GFR (CKD-EPI)AfAm (>60 ml/min/1.73 sqM) Est GFR (CKD-EPI)NonAf (>60 ml/min/1.73 sqM) Glucose (74-99) mg/dL Calcium (8.4-10.2) mg/dL Magnesium (1.6-2.3) mg/dL Total Bilirubin (0.2-1.3) mg/dL AST (14-36) U/L ALT (4-34) U/L Alkaline Phosphatase (38-126) U/L Troponin I <0.012 (0.000-0.034) ng/mL Total Protein (6.3-8.2) g/dL Albumin (3.5-5.0) g/dL Disposition Clinical Impression: COVID-19 Disposition: HOME SELF-CARE Condition: Stable Instructions (If sedation given, give patient instructions): Coronavirus Kimmie perez 2019 (COVID-19) Additional Instructions: Please return to the Emergency Department if symptoms worsen or any other concerns. Is patient prescribed a controlled substance at d/c from ED?: No Referrals: Joyce Clancy MD [Primary Care Provider] - 1-2 days Time of Disposition: 16:40
[2021-03-10] MEDS ORDERED: SODIUM CHLORIDE 0.9% 50 ML IVPB ONE ×2 (19:00→20:00)
[2021-03-10] MEDS ORDERED: CASIRIVIMAB/IMDEVIMAB (EUA) 1,200 MG in SODIUM CHLORIDE 0.9% 100 ML IVPB ONE (19:30)
[2021-03-10 20:44] VITALS: BP 118/78; PULSE 82; RESP 16; TEMP 98.9
== END 2021-03-10 20:43 | disposition home or self-care (01) ==
LOC: EC 15:18
DX: U07.1 COVID-19 (principal)
CPT/HCPCS: 36415; 93005; 85379; 80053; 83735; 84484; 85025; 85610; 85730; 99285; 96365; Q0243

== ENCOUNTER → 2021-05-30 | Outpatient (CLI) | payer BC | END | disposition home or self-care (01) | LOC: LABWHC1 13:00 | PROVIDERS: ATTEND Obstetrics & Gynecology | DX: N92.6 Irregular menstruation, unspecified (principal) | CPT/HCPCS: 36415; 84702 ==

== ENCOUNTER 2022-03-27 14:20 | Emergency (ER) | payer BC ==
--- NOTE | 2022-03-27 15:30 | ED ---
URI HPI - General Chief Complaint: Upper Respiratory Infection Stated Complaint: SOB,weakness,26wks preg Time Seen by Provider: 03/27/22 15:04 Source: patient Mode of arrival: ambulatory Limitations: no limitations - History of Present Illness Initial Comments: Patient is a 22-year-old female currently 26 weeks presenting with chief complaint of URI type symptoms. Patient states symptoms have been ongoing for the last 3 days, she admits to congestion, difficulty breathing, pleuritic pain, cough, sore throat, sinus pressure. She has been taking Mucinex which she was advised to discontinue taking by her ETCHER HAND. She sees Dr. Gerber. She d enies any palpitations, weakness, leg swelling, recent travel, extremity pain, vision or hearing changes, hand or facial swelling, dysuria, hematuria, abdominal pain, vaginal bleeding. - Related Data Previous Rx's Medication Instructions Recorded Albuterol Inhaler [Ventolin Hfa 1 - 2 puff INHALATION Q6H PRN #1 03/27/22 Inhaler] unit Allergies Allergy/AdvReac Type Severity Reaction Status Date / Time No Known Allergies Allergy Verified 03/27/22 16:22 Review of Systems ROS Statement: Those systems with pertinent positive or pertinent negative responses have been documented in the HPI. ROS Other: All systems not noted in ROS Statement are negative. Past Medical History Past Medical History: No Reported History Additional Past Medical History / Comment(s): anxiety History of Any Multi-Drug Resistant Organisms: None Reported Past Surgical History: No Surgical Hx Reported Additional Past Surgical History / Comment(s): Oral surgery. Past Anesthesia/Blood Transfusion Reactions: No Reported Reaction Past Psychological History: Anxiety Smoking Status: Never smoker Past Alcohol Use History: None Reported Past Drug Use History: None Reported - Past Family History Mother Family Medical History: Congestive Heart Failure (CHF), Coronary Artery Disease (CAD), CVA/TIA, Diabetes Mellitus General Exam Limitations: no limitations General appearance: alert, in no apparent distress Head exam: Present: atraumatic, normocephalic, normal inspection Eye exam: Present: normal appearance, PERRL, EOMI. Absent: scleral icterus, conjunctival injection, periorbital swelling Neck exam: Present: normal inspection Respiratory exam: Present: normal lung sounds bilaterally. Absent: respiratory distress, wheezes, rales, rhonchi, stridor Cardiovascular Exam: Present: normal rhythm, tachycardia, normal heart sounds. Absent: systolic murmur, diastolic murmur, rubs, gallop, clicks Extremities exam: Present: normal inspection, other (No unilateral swelling) Neurological exam: Present: alert, oriented X3, CN II-XII intact Psychiatric exam: Present: normal affect, normal mood Skin exam: Present: warm, dry, intact, normal color. Absent: rash Course Vital Signs 03/27/22 03/27/22 03/27/22 14:36 15:23 16:01 Temperature 98.8 F Pulse Rate 110 H 101 H Respiratory 20 20 18 Rate Blood Pressure 142/85 118/83 O2 Sat by Pulse 98 97 Oximetry 03/27/22 03/27/22 03/27/22 16:41 16:54 17:51 Temperature 98.4 F Pulse Rate 100 100 102 H Respiratory 18 Rate Blood Pressure 120/67 O2 Sat by Pulse 100 Oximetry 03/27/22 18:33 Temperature Pulse Rate 105 H Respiratory 18 Rate Blood Pressure 126/79 O2 Sat by Pulse 98 Oximetry Medical Decision Making - Medical Decision Making Patient is a 22-year-old female currently 26 weeks presenting with chief complaint of URI like symptoms. Patient has been experiencing cough, congestion, sore throat, pleuritic pain for the last 3 days. On examination patient is mildly tachycardic, lungs and heart are clear to auscultation, no unilateral swelling of the lower extremities, no recent travel or surgeries, no history of blood clots. EKG shows sinus tachycardia with rate of 102. Patient is given fluids and breathing treatment. Patient is negative for Covid, influenza, and strep throat. Urine appears contaminated, sent for culture. Chest x-ray shows no acute process. Lab work shows WBC 11.7, likely reactive. Coags are WNL. Troponin is less than 0.012. Patient does not wish to proceed d-dimer testing today, explaining to her the risks and benefits and she decided against obtaining a d-dimer today. Patient reports improvement after breathing treatment, feels as though she is able to cough up sputum more easily. heart tones range between 140 and 150. I educated the patient on supportive steven atment. Sent prescription for albuterol inhaler. Follow-up with PCP and ETCH[facility] HAND. Report back to ER with any new or worsening symptoms. Discussed return parameters and answered all questions. Patient conveyed verbal understanding and agreed to the plan. I discussed this case in detail with my attending Dr. Camp. - Lab Data Result diagrams: 03/27/22 16:20 03/27/22 16:20 Lab Results 03/27/22 03/27/22 03/27/22 Range/Units 15:14 15:19 15:22 WBC (3.8-10.6) k/uL RBC (3.80-5.40) m/uL Hgb (11.4-16.0) gm/dL Hct (34.0-46.0) % MCV (80.0-100.0) fL MCH (25.0-35.0) pg MCHC (31.0-37.0) g/dL RDW (11.5-15.5) % Plt Count (150-450) k/uL MPV Neutrophils % % Lymphocytes % % Monocytes % % Eosinophils % % Basophils % % Neutrophils # (1.3-7.7) k/uL Lymphocytes # (1.0-4.8) k/uL Monocytes # (0-1.0) k/uL Eosinophils # (0-0.7) k/uL Basophils # (0-0.2) k/uL PT (9.0-12.0) sec INR (<1.2) APTT (22.0-30.0) sec Sodium (137-145) mmol/L Potassium (3.5-5.1) mmol/L Chloride (98-107) mmol/L Carbon Dioxide (22-30) mmol/L Anion Gap mmol/L BUN (7-17) mg/dL Creatinine (0.52-1.04) mg/dL Est GFR (CKD-EPI)AfAm (>60 ml/min/1.73 sqM) Est GFR (CKD-EPI)NonAf (>60 ml/min/1.73 sqM) Glucose (74-99) mg/dL Plasma Lactic Acid Tanner (0.7-2.0) mmol/L Calcium (8.4-10.2) mg/dL Magnesium (1.6-2.3) mg/dL Total Bilirubin (0.2-1.3) mg/dL AST (14-36) U/L ALT (4-34) U/L Alkaline Phosphatase (38-126) U/L Troponin I (0.000-0.034) ng/mL Total Protein (6.3-8.2) g/dL Albumin (3.5-5.0) g/dL Urine Color Urine Appearance (Clear) Urine pH (5.0-8.0) Ur Specific [place] (1.001-1.035) Urine Protein (Negative) Urine Glucose (UA) (Negative) Urine Ketones (Negative) Urine Blood (Negative) Urine Nitrite (Negative) Urine Bilirubin (Negative) Urine Urobilinogen (<2.0) mg/dL Ur Leukocyte Esterase (Negative) Urine RBC (0-5) /hpf Urine WBC (0-5) /hpf Ur Squamous Epith Cells (0-4) /hpf Urine Bacteria (None) /hpf Hyaline Casts (0-2) /lpf Urine Mucus (None) /hpf Coronavirus (PCR) Not Detected (Not Detectd) Influenza Type A RNA Not Detected (Not Detectd) Influenza Type B (PCR) Not Detected (Not Detectd) Group A Strep (PCR) NOT DETECTED (Not Detectd) 03/27/22 03/27/22 03/27/22 Range/Units 16:11 16:20 16:20 WBC 11.7 H (3.8-10.6) k/uL RBC 4.26 (3.80-5.40) m/uL Hgb 13.3 (11.4-16.0) gm/dL Hct 39.1 (34.0-46.0) % MCV 91.8 (80.0-100.0) fL MCH 31.3 (25.0-35.0) pg MCHC 34.1 (31.0-37.0) g/dL RDW 12.4 (11.5-15.5) % Plt Count 244 (150-450) k/uL MPV 7.7 Neutrophils % 84 % Lymphocytes % 9 % Monocytes % 5 % Eosinophils % 1 % Basophils % 0 % Neutrophils # 9.8 H (1.3-7.7) k/uL Lymphocytes # 1.0 (1.0-4.8) k/uL Monocytes # 0.6 (0-1.0) k/uL Eosinophils # 0.1 (0-0.7) k/uL Basophils # 0.0 (0-0.2) k/uL PT 9.3 (9.0-12.0) sec INR 0.8 (<1.2) APTT 22.9 (22.0-30.0) sec Sodium (137-145) mmol/L Potassium (3.5-5.1) mmol/L Chloride (98-107) mmol/L Carbon Dioxide (22-30) mmol/L Anion Gap mmol/L BUN (7-17) mg/dL Creatinine (0.52-1.04) mg/dL Est GFR (CKD-EPI)AfAm (>60 ml/min/1.73 sqM) Est GFR (CKD-EPI)NonAf (>60 ml/min/1.73 sqM) Glucose (74-99) mg/dL Plasma Lactic Acid Tanner (0.7-2.0) mmol/L Calcium (8.4-10.2) mg/dL Magnesium (1.6-2.3) mg/dL Total Bilirubin (0.2-1.3) mg/dL AST (14-36) U/L ALT (4-34) U/L Alkaline Phosphatase (38-126) U/L Troponin I (0.000-0.034) ng/mL Total Protein (6.3-8.2) g/dL Albumin (3.5-5.0) g/dL Urine Color Light Yellow Urine Appearance Cloudy H (Clear) Urine pH 6.5 (5.0-8.0) Ur Specific [place] 1.012 (1.001-1.035) Urine Protein Negative (Negative) Urine Glucose (UA) Negative (Negative) Urine Ketones Negative (Negative) Urine Blood Negative (Negative) Urine Nitrite Negative (Negative) Urine Bilirubin Negative (Negative) Urine Urobilinogen <2.0 (<2.0) mg/dL Ur Leukocyte Esterase Trace H (Negative) Urine RBC 1 (0-5) /hpf Urine WBC 33 H (0-5) /hpf Ur Squamous Epith Cells 18 H (0-4) /hpf Urine Bacteria Many H (None) /hpf Hyaline Casts 1 (0-2) /lpf Urine Mucus Occasional H (None) /hpf Coronavirus (PCR) (Not Detectd) Influenza Type A RNA (Not Detectd) Influenza Type B (PCR) (Not Detectd) Group A Strep (PCR) (Not Detectd) 03/27/22 03/27/22 03/27/22 Range/Units 16:20 16:20 16:20 WBC (3.8-10.6) k/uL RBC (3.80-5.40) m/uL Hgb (11.4-16.0) gm/dL Hct (34.0-46.0) % MCV (80.0-100.0) fL MCH (25.0-35.0) pg MCHC (31.0-37.0) g/dL RDW (11.5-15.5) % Plt Count (150-450) k/uL MPV Neutrophils % % Lymphocytes % % Monocytes % % Eosinophils % % Basophils % % Neutrophils # (1.3-7.7) k/uL Lymphocytes # (1.0-4.8) k/uL Monocytes # (0-1.0) k/uL Eosinophils # (0-0.7) k/uL Basophils # (0-0.2) k/uL PT (9.0-12.0) sec INR (<1.2) APTT (22.0-30.0) sec Sodium 134 L (137-145) mmol/L Potassium 4.0 (3.5-5.1) mmol/L Chloride 103 (98-107) mmol/L Carbon Dioxide 18 L (22-30) mmol/L Anion Gap 13 mmol/L BUN 5 L (7-17) mg/dL Creatinine 0.43 L (0.52-1.04) mg/dL Est GFR (CKD-EPI)AfAm >90 (>60 ml/min/1.73 sqM) Est GFR (CKD-EPI)NonAf >90 (>60 ml/min/1.73 sqM) Glucose 75 (74-99) mg/dL Plasma Lactic Acid Tanner 0.9 (0.7-2.0) mmol/L Calcium 9.1 (8.4-10.2) mg/dL Magnesium 1.9 (1.6-2.3) mg/dL Total Bilirubin 0.4 (0.2-1.3) mg/dL AST 27 (14-36) U/L ALT 20 (4-34) U/L Alkaline Phosphatase 99 (38-126) U/L Troponin I <0.012 (0.000-0.034) ng/mL Total Protein 7.4 (6.3-8.2) g/dL Albumin 4.2 (3.5-5.0) g/dL Urine Color Urine Appearance (Clear) Urine pH (5.0-8.0) Ur Specific [place] (1.001-1.035) Urine Protein (Negative) Urine Glucose (UA) (Negative) Urine Ketones (Negative) Urine Blood (Negative) Urine Nitrite (Negative) Urine Bilirubin (Negative) Urine Urobilinogen (<2.0) mg/dL Ur Leukocyte Esterase (Negative) Urine RBC (0-5) /hpf Urine WBC (0-5) /hpf Ur Squamous Epith Cells (0-4) /hpf Urine Bacteria (None) /hpf Hyaline Casts (0-2) /lpf Urine Mucus (None) /hpf Coronavirus (PCR) (Not Detectd) Influenza Type A RNA (Not Detectd) Influenza Type B (PCR) (Not Detectd) Group A Strep (PCR) (Not Detectd) Disposition Clinical Impression: URI (upper respiratory infection) Disposition: HOME SELF-CARE Condition: Fair Instructions (If sedation given, give patient instructions): Upper Respiratory Infection (ED) Additional Instructions: Follow-up with PCP and [facility]CH[facility] HAND. Report back to ER with any new or worsening symptoms. Prescriptions: Albuterol Inhaler [Ventolin Hfa Inhaler] 1 - 2 puff INHALATION Q6H PRN #1 unit PRN Reason: Shortness Of Breath Is patient prescribed a controlled substance at d/c from ED?: No Referrals: None,Stated [REFERRING] - 1-2 days Arlene Gerber DO [Doctor of Osteopathic Medicine] - 1-2 days Time of Disposition: 18:14
--- NOTE | 2022-03-27 15:45 | XR ---
EXAMINATION TYPE: XR chest 2V DATE OF EXAM: 03/27/2022 COMPARISON: Chest x-ray March 09, 2021 HISTORY: Shortness of breath and cough. TECHNIQUE: Frontal and lateral views of the chest are obtained. FINDINGS: Low lung volumes are redemonstrated. There is no suspicious focal air space opacity, pleur al effusion, or pneumothorax seen. The cardiac silhouette size is stable and within normal limits. The osseous structures are intact. IMPRESSION: No acute process. No significant change from prior.
[2022-03-27] MEDS ORDERED: ALBUTEROL NEBULIZED 2.5 MG/3 ML INHALATION STA (15:57)
[2022-03-27 16:02] VITALS: RESP 18
[2022-03-27] MEDS ORDERED: SODIUM CHLORIDE 0.9% 1,000 ML IV STA (16:06)
[2022-03-27 16:32] LABS: Appearance,Urine Cloudy (Clear); Bacteria,Urine Many /hpf; Bilirubin,Urine Negative (Negative); Blood,Urine Negative (Negative); Color,Urine Light Yellow; Glucose,Urine (UA) Negative (Negative); Hyaline Casts,Urine 1 /lpf (0-2); Ketones,Urine Negative (Negative); Leukocyte Esterase,Urine Trace (Negative); Mucus,Urine Occasional /hpf; Nitrite,Urine Negative (Negative); PH, Urine 6.5 (5.0-8.0); Protein,Urine Negative (Negative); RBC,Urine 1 /hpf (0-5); Specific Gravity,Urine 1.012 (1.001-1.035); Squamous Epithelial Cell,Urine 18 /hpf (0-4); Urobilinogen,Urine <2.0 mg/dL (<2.0); WBC,Urine 33 /hpf (0-5)
[2022-03-27 16:46] LABS: Basophils % (A) 0 %; Eosinophils # (A) 0.1 k/uL (0-0.7); Eosinophils % (A) 1 %; HCT 39.1 % (34.0-46.0); HGB 13.3 gm/dL (11.4-16.0); Lymphocytes % (A) 9 %; MCH 31.3 pg (25.0-35.0); MCHC 34.1 g/dL (31.0-37.0); MCV 91.8 fL (80.0-100.0); Mean Platelet Volume 7.7; Monocytes # (A) 0.6 k/uL (0-1.0); Monocytes % (A) 5 %; Neutrophils # (A) 9.8 k/uL (1.3-7.7); Neutrophils % (A) 84 %; Platelet Count 244 k/uL (150-450); RBC 4.26 m/uL (3.80-5.40); RDW 12.4 % (11.5-15.5); WBC 11.7 k/uL (3.8-10.6)
[2022-03-27 16:55] LABS: INR 0.8 (<1.2); Partial Thromboplastin Time 22.9 sec (22.0-30.0); Prothrombin Time 9.3 sec (9.0-12.0)
[2022-03-27 16:58] LABS: ALT 20 U/L (4-34); AST 27 U/L (14-36); African American GFR (CKD) >90 (>60 ml/min/1.73 sqM); Albumin 4.2 g/dL (3.5-5.0); Alkaline Phosphatase 99 U/L (38-126); Anion Gap 13 mmol/L; Blood Urea Nitrogen 5 mg/dL (7-17); Calcium 9.1 mg/dL (8.4-10.2); Carbon Dioxide 18 mmol/L (22-30); Chloride 103 mmol/L (98-107); Glucose 75 mg/dL (74-99); Magnesium 1.9 mg/dL (1.6-2.3); Non-African American GFR(CKD) >90 (>60 ml/min/1.73 sqM); Sodium 134 mmol/L (137-145); Total Bilirubin 0.4 mg/dL (0.2-1.3); Total Protein 7.4 g/dL (6.3-8.2)
[2022-03-27] MEDS ORDERED: ACETAMINOPHEN TAB 325 MG TAB PO STA (17:34)
[2022-03-27 17:53] VITALS: TEMP 98.4
[2022-03-27 18:34] VITALS: BP 126/79; PULSE 105
== END 2022-03-27 18:34 | disposition home or self-care (01) ==
LOC: EC 14:20
DX: O99.512 Diseases of the respiratory system complicating pregnancy, second trimester (principal); F41.9 Anxiety disorder, unspecified; Z79.51 Long term (current) use of inhaled steroids; Z3A.26 26 weeks gestation of pregnancy; Z20.822 Contact with and (suspected) exposure to COVID-19
CPT/HCPCS: 36415; 71046; 80053; 81001; 83605; 83735; 84484; 85025; 85610; 85730; 87086; 87502; 87635; 87651; 93005; 94640; 96360; 99285

== ENCOUNTER 2022-06-05 16:14 | Outpatient (CLI) | payer BC, OTHER ==
[2022-06-05 18:03] VITALS: BP 146/80; PULSE 96; RESP 18; TEMP 97.6
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
== END 2022-06-05 17:25 | disposition home or self-care (01) ==
LOC: FBPOP 16:14
PROVIDERS: ATTEND Obstetrics & Gynecology
DX: O99.891 Other specified diseases and conditions complicating pregnancy (principal); W18.30XA Fall on same level, unspecified, initial encounter; Z3A.36 36 weeks gestation of pregnancy
CPT/HCPCS: 59025; 84112; 99213

== ENCOUNTER 2022-06-20 00:28 | Outpatient (CLI) | payer BC, OTHER ==
[2022-06-20 02:22] VITALS: BP 138/82; PULSE 101; RESP 16; TEMP 96.7
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
== END 2022-06-20 02:22 ==
LOC: FBPOP 00:28
PROVIDERS: ATTEND Obstetrics & Gynecology
DX: O47.03 False labor before 37 completed weeks of gestation, third trimester (principal); Z3A.36 36 weeks gestation of pregnancy
CPT/HCPCS: 59025; 99213

== ENCOUNTER 2022-06-26 16:14 | Outpatient (CLI) | payer BC, OTHER ==
[2022-06-26 17:54] LABS: Basophils % (A) 0 %; Eosinophils # (A) 0.2 k/uL (0-0.7); Eosinophils % (A) 2 %; HCT 38.3 % (34.0-46.0); HGB 13.2 gm/dL (11.4-16.0); Lymphocytes # (A) 1.5 k/uL (1.0-4.8); Lymphocytes % (A) 18 %; MCH 30.8 pg (25.0-35.0); MCHC 34.4 g/dL (31.0-37.0); MCV 89.5 fL (80.0-100.0); Mean Platelet Volume 7.7; Monocytes # (A) 0.5 k/uL (0-1.0); Monocytes % (A) 6 %; Neutrophils # (A) 5.5 k/uL (1.3-7.7); Neutrophils % (A) 69 %; Platelet Count 258 k/uL (150-450); RBC 4.29 m/uL (3.80-5.40); RDW 13.2 % (11.5-15.5); WBC 7.9 k/uL (3.8-10.6)
[2022-06-26 18:01] LABS: Amorphous Sediment,Urine Rare /hpf; Appearance,Urine Cloudy (Clear); Bacteria,Urine Occasional /hpf; Bilirubin,Urine Negative (Negative); Blood,Urine Negative (Negative); Color,Urine Yellow; Glucose,Urine (UA) Negative (Negative); Ketones,Urine Negative (Negative); Leukocyte Esterase,Urine Negative (Negative); Mucus,Urine Rare /hpf; Nitrite,Urine Negative (Negative); Protein,Urine Negative (Negative); RBC,Urine <1 /hpf (0-5); Specific Gravity,Urine 1.012 (1.001-1.035); Squamous Epithelial Cell,Urine 4 /hpf (0-4); Urobilinogen,Urine <2.0 mg/dL (<2.0); WBC,Urine 3 /hpf (0-5)
[2022-06-26 18:02] LABS: ALT 15 U/L (4-34); AST 19 U/L (14-36); African American GFR (CKD) >90 (>60 ml/min/1.73 sqM); Blood Urea Nitrogen 5 mg/dL (7-17); LDH 484 U/L (313-618); Non-African American GFR(CKD) >90 (>60 ml/min/1.73 sqM); Uric Acid 3.8 mg/dL (3.7-7.4)
[2022-06-26 18:08] LABS: Creatinine,Urine Random 81.7 mg/dL; Protein/Creatinine Ratio,Urine 0.208
[2022-06-26 18:40] VITALS: BP 145/80; PULSE 80; RESP 18; TEMP 97.6
--- NOTE | 2022-07-25 01:51 | P.MSEPDOC ---
Presenting Problems - Arrival Data Date of Arrival on Unit: 06/26/22 Time of Arrival on Unit: 16:14 Mode of Transport: Ambulatory - Complaint OB-Reason for Admission/Chief Complaint: Rule Out SROM, Decreased Movement Comment: pt presents for possible SROM at 0230 this am and decreased movement, has had headache for the last 2 days Medical History - Information : 2 Para: 1 Term: 1 : 0 Abortions: Spontaneous or Elective: 0 Number of Living Children: 1 - Gestational Age Gestational Age by BAR (wks/days): 39 Weeks and 1 Days Review of Systems - Review of Systems Constitutional: No problems Breast: No problems ENT: No problems Cardiovascular: No problems Respiratory: No problems Gastrointestinal: No problems Genitourinary: No problems Musculoskeletal: No problems Neurological: No problems Skin: No problems Vital Signs - Temperature Temperature: 97.6 F Temperature Source: Temporal Artery Scan - Pulse Right Brachial Pulse Rate: 80 Pulse Assessment Method: Automatic Cuff - Respirations Respiratory Rate: 18 Oxygen Delivery Method: Room Air O2 Sat by Pulse Oximetry: 100 - Blood Pressure Right Arm Blood Pressure: 145/80 Blood Pressure Mean: 101 Blood Pressure Source: Automatic Cuff Medical Screen Scoring - Cervical Exam Dilation (cm): 1.5 Effacement (%): 50 Station: -2 Membranes: Intact - Uterine Contractions Intensity: Mild Resting: Soft to palpation - Assessment - Baby A Baseline FHR: 130 Heart Rate - NICHD Category: Category I (Normal) NST: Reactive Physician Notification - Physician Notified Physician Notified Date: 06/26/22 Physician Notified Time: 17:15 Physician: Arlene Gerber New Order Received: Yes - Notification Comment Comment: Amniosure negative, felt movement since arrival in triage, PIH labs drawn, all wnl, pt is scheduled for induction on Sunday, reviewed s/s of labor and preeclampisa, instructed to return for further monitoring if having increased headache and vision changes, last bp's before discharge was 140/80 and 139/80 Maternal Triage Index - Maternal Triage Index Presenting for scheduled procedure w/no complaint: No - Stat/Priority 1 Stat Priority 1: No - Urgent/Priority 2 Urgent Priority 2: No - Prompt/Priority 3 Prompt Priority 3: Yes Criteria Met for Priority 3: pt presents for possible SROM at 0230 this am and decreased movement, has had headache for the last 2 days Disposition - Disposition OB Disposition: Triage, Discharge to home, Written follow up instructions reviewed Discharge Date: 06/26/22 Discharge Time: 18:30 I agree with the RN Medical Screening Exam: Yes Case reviewed; plan agreed upon as documented in EMR&OBIX.: Yes Diagnosis: DECREASED MOVEMENTS, THIRD TRIMESTER, FETUS 1
== END 2022-06-26 18:30 | disposition home or self-care (01) ==
LOC: FBPOP 16:14
PROVIDERS: ATTEND Obstetrics & Gynecology
DX: O36.8131 Decreased fetal movements, third trimester, fetus 1 (principal); Z3A.39 39 weeks gestation of pregnancy
CPT/HCPCS: 59025; 81001; 82565; 82570; 83615; 84112; 84156; 84450; 84460; 84520; 84550; 85025; 99213

== ENCOUNTER 2022-06-28 06:03 | Inpatient (IN) | payer BC, OTHER ==
[2022-06-28] MEDS ORDERED: TERBUTALINE 1 MG/ML VIAL SQ PRN (06:20)
[2022-06-28] MEDS ORDERED: LIDOCAINE 0.5% (PF) 5 MG/ML (50 ML SDV) SQ PRN (06:20)
[2022-06-28] MEDS ORDERED: OXYTOCIN 30 UNITS/500 ML NS 30 UNIT in SALINE 1 500ML.BAG IV SCH ×2 (06:30→15:15)
[2022-06-28] MEDS: LACTATED RINGERS 1,000 ML IV SCH ×2 (06:37→11:30)
--- NOTE | 2022-06-28 08:39 | P.HPOB ---
History of Present Illness H&P Date: 06/28/22 Chief Complaint: Induction of labor 22-year-old presents at 39 weeks and 3 days for induction of labor. Her cervix is 37 m dilated, 70% effaced, -2 station. She is not rafael. heart tones 135 with moderate variability and reactive. Review of Systems All systems: negative Constitutional: Denies chills, Denies fever Eyes: denies blurred vision, denies pain Ears, nose, mouth and throat: Denies headache, Denies sore throat Cardiovascular: Denies chest pain, Denies shortness of breath Respiratory: Denies cough Gastrointestinal: Denies abdominal pain, Denies diarrhea, Denies nausea, Denies vomiting Genitourinary: Denies dysuria, Denies hematuria Musculoskeletal: Denies myalgias Integumentary: Denies pruritus, Denies rash Neurological: Denies numbness, Denies weakness Psychiatric: Denies anxiety, Denies depression Endocrine: Denies fatigue, Denies weight change Past Medical History Past Medical History: No Reported History Additional Past Medical History / Comment(s): anxiety History of Any Multi-Drug Resistant Organisms: None Reported Past Surgical History: Cholecystectomy Additional Past Surgical History / Comment(s): Oral surgery. Past Anesthesia/Blood Transfusion Reactions: No Reported Reaction Past Psychological History: Anxiety Smoking Status: Never smoker Past Alcohol Use History: None Reported Past Drug Use History: None Reported - Past Family History Mother Family Medical History: Congestive Heart Failure (CHF), Coronary Artery Disease (CAD), CVA/TIA, Diabetes Mellitus Medications and Allergies Home Medications Medication Instructions Recorded Confirmed Type No Known Home Medications 06/28/22 06/28/22 History Allergies Allergy/AdvReac Type Severity Reaction Status Date / Time No Known Allergies Allergy Verified 06/28/22 06:18 Exam Osteopathic Statement: *. No significant issues noted on an osteopathic structural exam other than those noted in the History and Physical/Consult. Vital Signs Temp Pulse Resp BP Pulse Ox 06/28/22 06:44 97.3 F L 100 16 145/92 98 Intake and Output 06/27/22 06/28/22 06/28/22 22:59 06:59 14:59 Other: Weight 148.778 kg Heart: Regular rate and rhythm Lungs: Clear to auscultation bilaterally Abdomen: Soft, nontender Extremities: Negative Homans sign Assessment and Plan (1) Elective induction of labor planned Current Visit: Yes Status: Acute Code(s): [id number] - SNOMED Code(s): 487824354 Plan: 1. Induction of labor with amniotomy and Pitocin 2. Anticipate normal vaginal delivery
[2022-06-28 08:58] LABS: Basophils % (A) 0 %; Eosinophils # (A) 0.1 k/uL (0-0.7); Eosinophils % (A) 2 %; HCT 37.5 % (34.0-46.0); HGB 12.8 gm/dL (11.4-16.0); Lymphocytes # (A) 1.5 k/uL (1.0-4.8); Lymphocytes % (A) 16 %; MCH 30.6 pg (25.0-35.0); MCHC 34.2 g/dL (31.0-37.0); MCV 89.4 fL (80.0-100.0); Mean Platelet Volume 8.1; Monocytes # (A) 0.5 k/uL (0-1.0); Monocytes % (A) 5 %; Neutrophils % (A) 75 %; Platelet Count 206 k/uL (150-450); RBC 4.19 m/uL (3.80-5.40); RDW 13.1 % (11.5-15.5); WBC 9.4 k/uL (3.8-10.6)
[2022-06-28] MEDS ORDERED: BUTORPHANOL 1 MG/ML 1 ML VIAL IV PRN (09:12)
[2022-06-28] MEDS ORDERED: fentaNYL (PF) 50 MCG/ML 5 ML AMP ONE (11:14)
[2022-06-28] MEDS ORDERED: BUPIVACAINE (PF) 0.25% 30 ML VIAL ONE (11:14)
[2022-06-28] MEDS ORDERED: SODIUM CHLORIDE 0.9% 100 ML BAG ONE (11:14)
[2022-06-28] MEDS ORDERED: diphenhydrAMINE 25 MG CAP PO PRN (15:11)
[2022-06-28] MEDS ORDERED: LANOLIN CREAM 5 GM TUBE TOPICAL PRN (15:11)
[2022-06-28] MEDS ORDERED: BENZOCAINE/MENTHOL SPRAY 1 GM/SPRAY AEROSOL TOPICAL PRN (15:11)
[2022-06-28] MEDS ORDERED: HYDROCORTISONE 2.5% RECTAL CREAM 30 GM TUBE RECTAL PRN (15:11)
[2022-06-28] MEDS ORDERED: ZOLPIDEM 5 MG TAB PO PRN (15:11)
[2022-06-28] MEDS ORDERED: diphenhydrAMINE 50 MG CAP PO PRN (15:11)
[2022-06-28] MEDS ORDERED: diphenhydrAMINE 50 MG/ML 1 ML VIAL IVP PRN ×2 (15:11)
[2022-06-28] MEDS ORDERED: SIMETHICONE 80 MG CHEWABLE PO PRN (15:11)
[2022-06-28] MEDS: IBUPROFEN 600 MG TAB PO PRN ×2 (15:35→21:42)
[2022-06-28] MEDS: ACETAMINOPHEN TAB 325 MG TAB PO PRN (19:16)
[2022-06-28] MEDS: SENNOSIDES-DOCUSATE SODIUM 1 EACH TAB PO SCH (21:42)
[2022-06-29] MEDS: ACETAMINOPHEN TAB 325 MG TAB PO PRN ×3 (01:35→19:48)
[2022-06-29] MEDS: IBUPROFEN 600 MG TAB PO PRN ×2 (03:31→13:25)
[2022-06-29 08:12] LABS: Basophils % (A) 0 %; Eosinophils # (A) 0.1 k/uL (0-0.7); Eosinophils % (A) 1 %; HGB 11.3 gm/dL (11.4-16.0); Lymphocytes # (A) 1.5 k/uL (1.0-4.8); Lymphocytes % (A) 16 %; MCH 31.2 pg (25.0-35.0); MCHC 34.2 g/dL (31.0-37.0); MCV 91.4 fL (80.0-100.0); Monocytes # (A) 0.5 k/uL (0-1.0); Monocytes % (A) 5 %; Neutrophils % (A) 76 %; Platelet Count 213 k/uL (150-450); RDW 13.3 % (11.5-15.5); WBC 9.3 k/uL (3.8-10.6)
[2022-06-29] MEDS: SENNOSIDES-DOCUSATE SODIUM 1 EACH TAB PO SCH ×2 (08:42→19:49)
--- NOTE | 2022-06-29 10:49 | P.PROBDLV ---
Vaginal Delivery Note - . Vaginal Delivery Note: 22-year-old presents at 39 weeks and 3 days for induction of labor. Her cervix is 3 cm dilated, 70% effaced, -2 station. She is not rafael. heart tones 135 with moderate variability and reactive. Pitocin was started and amniotomy performed at 7:24 AM clear fluid noted. When patient uncomfortable she did get an epidural. Her cervix was completely dilated at 1352. She pushed and delivered a viable male infant over intact perineum under epidural anesthesia at 1403. Head delivered OA, nuchal cord 2 easily reduced, anterior shoulder delivered gentle downward guidance for by posterior shoulder and rest of body. Nose and mouth bulb suctioned, cord clamped and cut, placed mother's abdomen. Apgars 9, 9, weight 8 lbs. 2 oz. Placenta delivered spontaneously, intact with three-vessel cord at 1405. Vagina, cervix, perineum inspected. First midline laceration was repaired with 3-0 Vicryl. Estimated blood loss 100 mL. Mother and baby in stable condition.
--- NOTE | 2022-06-29 10:51 | P.DS ---
Providers Date of admission: 06/28/22 06:03 Expected date of discharge: 06/29/22 Attending physician: Arlene Gerber Primary care physician: Stated None - Discharge Diagnosis(es) (1) Elective induction of labor planned Current Visit: Yes Status: Resolved (2) Normal vaginal delivery Current Visit: Yes Status: Acute Hospital Course: Patient is on it for induction of labor. She underwent a normal vaginal delivery. course on, K. She denies nausea, vomiting, chest pain, sugars of breath or any calf pain. Patient will be discharged home day #1 in stable condition to follow-up with me in 6 weeks. Plan - Discharge Summary New Discharge Prescriptions: New Ibuprofen [Motrin] 600 mg PO Q6HR PRN #30 tab PRN Reason: Mild Pain (Scale 1 To 3) Discharge Medication List Ibuprofen [Motrin] 600 mg PO Q6HR PRN #30 tab 06/29/22 [Rx] Follow up Appointment(s)/Referral(s): Arlene Gerber DO [Doctor of Osteopathic Medicine] - 08/07/22 11:15 am Discharge Disposition: HOME SELF-CARE
[2022-06-30] MEDS: IBUPROFEN 600 MG TAB PO PRN ×2 (00:06→09:55)
[2022-06-30 01:16] VITALS: RESP 16; TEMP 98.1
[2022-06-30] MEDS: ACETAMINOPHEN TAB 325 MG TAB PO PRN (04:31)
[2022-06-30 08:03] VITALS: BP 127/87; PULSE 80
[2022-06-30] MEDS: SENNOSIDES-DOCUSATE SODIUM 1 EACH TAB PO SCH (08:03)
== END 2022-06-30 15:00 | disposition home or self-care (01) | DRG 807 ==
LOC: 4FBP 06:03
PROVIDERS: ADMIT Obstetrics & Gynecology; ATTEND Obstetrics & Gynecology
PROC: 10E0XZZ Delivery of Products of Conception, External Approach (ICD-10-PCS; principal; 2022-06-28)
PROC: 0HQ9XZZ Repair Perineum Skin, External Approach (ICD-10-PCS; 2022-06-28)
PROC: 10907ZC Drainage of Amniotic Fluid, Therapeutic from Products of Conception, Via Natural or Artificial Opening (ICD-10-PCS; 2022-06-28)
PROC: 4A0HXCZ Measurement of Products of Conception, Cardiac Rate, External Approach (ICD-10-PCS; 2022-06-28)
PROC: 3E033VJ Introduction of Other Hormone into Peripheral Vein, Percutaneous Approach (ICD-10-PCS; 2022-06-28)
DX: O69.81X0 Labor and delivery complicated by cord around neck, without compression, not applicable or unspecified (principal); Z37.0 Single live birth; O70.0 First degree perineal laceration during delivery; F41.9 Anxiety disorder, unspecified; O99.344 Other mental disorders complicating childbirth; Z3A.39 39 weeks gestation of pregnancy; Z90.49 Acquired absence of other specified parts of digestive tract
CPT/HCPCS: 85025; 86850; 86900; 86901